=== PATIENT | female | born 1985 | race Caucasian/White ===

== ENCOUNTER → 2017-05-12 | Outpatient (CLI) | payer BC ==
[~2017-05-12] MED LIST: ADDE10CA3 OR; ATOM40CA OR; CELE20TA OR; DEPA500T2 OR; PROZ20CA OR
[2017-05-12 14:15] LABS: BASO % 0.7 % (0.0-1.0); EOS # 0.1 K/mm3 (0.0-0.50); EOS % 2.4 % (0.0-3.0); LARGE UNSTAINED CELL # 0.1 K/mm3 (0.0-0.4); LARGE UNSTAINED CELL % 1.6 % (0.0-4.0); LYMPH # 1.9 K/mm3 (1.5-4.5); LYMPH % 36.5 % (24.0-44.0); MEAN CORPUSCULAR HEMOGLOBIN 29.7 pg (27.0-33.0); MEAN CORPUSCULAR HGB CONC 31.7 g/dl (32.0-36.5); MEAN CORPUSCULAR VOLUME 93.8 fl (80.0-96.0); MONO # 0.3 K/mm3 (0.0-0.8); MONO % 6.6 % (0.0-5.0); NEUTROPHILS # 2.6 K/mm3 (1.8-7.7); NEUTROPHILS % 52.2 % (36.0-66.0); PLATELET COUNT, AUTOMATED 214 k/mm3 (150-450); RED CELL DISTRIBUTION WIDTH 13.3 % (11.5-14.5)
[2017-05-12 14:34] LABS: ALBUMIN 3.3 GM/DL (3.2-5.2); ALBUMIN/GLOBULIN RATIO 0.97 (1.00-1.93); ALKALINE PHOSPHATASE 81 U/L (45-117); ALT/SGPT 20 U/L (12-78); ANION GAP 9 MEQ/L (8-16); AST/SGOT 15 U/L (15-37); BILIRUBIN,TOTAL 0.4 MG/DL (0.2-1.0); BLOOD UREA NITROGEN 17 MG/DL (7-18); CALCIUM LEVEL 7.9 MG/DL (8.5-10.1); CARBON DIOXIDE LEVEL 24 MEQ/L (21-32); CHLORIDE LEVEL 109 MEQ/L (98-107); CHOLESTEROL LEVEL 162 MG/DL (<200); FREE T4 1.02 NG/DL (0.76-1.46); GLOMERULAR FILTRATION RATE > 60.0 (>60); GLUCOSE, FASTING 84 MG/DL (70-105); POTASSIUM SERUM 4.4 MEQ/L (3.5-5.1); SODIUM LEVEL 142 MEQ/L (136-145); TOTAL PROTEIN 6.7 GM/DL (6.4-8.2); TRIGLYCERIDES LEVEL 35 MG/DL (<150)
== END ==
LOC: M WUC 11:38
PROVIDERS: ATTEND Nurse Practitioner Family
DX: R63.5 Abnormal weight gain (principal)

== ENCOUNTER → 2017-05-18 | Outpatient (REF) | payer BC | LOC: M SFHCPLAZ 17:04 | PROVIDERS: ATTEND Nurse Practitioner Family | DX: R82.90 Unspecified abnormal findings in urine (principal) ==

== ENCOUNTER → 2017-09-20 | Outpatient (CLI) | payer BC ==
[2017-09-20 14:30] LABS: ESTIMATED AVERAGE GLUCOSE 85 MG/DL (60-110); HEMOGLOBIN A1c 4.6 %
== END ==
LOC: M SMT 09:21
DX: E66.09 Other obesity due to excess calories (principal)
CPT/HCPCS: 83036

== ENCOUNTER → 2017-11-02 | Outpatient (CLI) | payer BC ==
[2017-11-02 15:47] LABS: HCG, SERUM QUANTITATIVE 3854 MIU/ML
== END ==
LOC: M WUC 12:54
DX: Z33.1 Pregnant state, incidental (principal)
CPT/HCPCS: 84702

== ENCOUNTER → 2017-11-16 | Outpatient (CLI) | payer BC ==
[2017-11-16 12:57] LABS: BASO % 0.5 % (0.0-1.0); EOS # 0.1 10^3/uL (0.0-0.50); EOS % 2.2 % (0.0-3.0); HEMATOCRIT 42.4 % (36.0-47.0); HEMOGLOBIN 13.9 g/dl (12.0-16.0); IMMATURE GRANULOCYTE % 0.3 % (0-3.0); LYMPH # 1.7 10^3/uL (1.5-4.5); MEAN CORPUSCULAR HEMOGLOBIN 30.6 pg (27.0-33.0); MEAN CORPUSCULAR HGB CONC 32.8 g/dl (32.0-36.5); MEAN CORPUSCULAR VOLUME 93.4 fl (80.0-96.0); MONO # 0.6 10^3/uL (0.0-0.8); MONO % 8.6 % (0.0-5.0); NEUTROPHILS # 3.9 10^3/uL (1.8-7.7); NEUTROPHILS % 61.4 % (36.0-66.0); PLATELET COUNT, AUTOMATED 265 10^3/uL (150-450); RED BLOOD COUNT 4.54 10^6/uL (4.00-5.40); RED CELL DISTRIBUTION WIDTH 13.6 % (11.5-14.5); WHITE BLOOD COUNT 6.4 10^3/uL (4.0-10.0)
[2017-11-16 13:26] LABS: HBsAg Prenatal NEGATIVE (NEGATIVE)
[2017-11-16 13:32] LABS: RUBELLA IgG QUALITATIVE IMMUNE (IMMUNE)
[2017-11-16 13:54] LABS: HEPATITIS C VIRUS ABY INDEX 0.1 INDEX (<0.8)
[2017-11-16 13:55] LABS: HIV 1&2 SCREEN CENTAUR NEGATIVE (NEGATIVE)
[2017-11-16 15:25] LABS: CHLAMYDIA DNA AMPLIFICATION NEGATIVE (NEGATIVE); GC DNA AMPLIFICATION NEGATIVE (NEGATIVE)
== END ==
LOC: M SMT 09:48
DX: Z3A.01 Less than 8 weeks gestation of pregnancy (principal); Z34.01 Encounter for supervision of normal first pregnancy, first trimester

== ENCOUNTER → 2018-02-06 | Outpatient (CLI) | payer BC | LOC: M RAD 09:19 | DX: O09.512 Supervision of elderly primigravida, second trimester (principal) ==

== ENCOUNTER → 2018-03-20 | Outpatient (CLI) | payer BC ==
[2018-03-20 13:25] LABS: HEMATOCRIT 34.3 % (36.0-47.0); HEMOGLOBIN 11.3 g/dl (12.0-15.5); MEAN CORPUSCULAR HEMOGLOBIN 30.4 pg (27.0-33.0); MEAN CORPUSCULAR HGB CONC 32.9 g/dl (32.0-36.5); MEAN CORPUSCULAR VOLUME 92.2 fl (80.0-96.0); PLATELET COUNT, AUTOMATED 204 10^3/uL (150-450); RED BLOOD COUNT 3.72 10^6/uL (4.00-5.40); RED CELL DISTRIBUTION WIDTH 14.3 % (11.5-14.5); WHITE BLOOD COUNT 9.9 10^3/uL (4.0-10.0)
[2018-03-20 13:41] LABS: GLUCOSE CHALLENGE TEST 1 HOUR 122 MG/DL (LESS THAN 140)
== END ==
LOC: M SMT 10:22
DX: Z36.89 Encounter for other specified antenatal screening (principal); Z3A.00 Weeks of gestation of pregnancy not specified
CPT/HCPCS: 82950

== ENCOUNTER → 2018-05-22 | Outpatient (CLI) | payer BC | LOC: M RAD 06:53 | DX: O26.843 Uterine size-date discrepancy, third trimester (principal); Z3A.33 33 weeks gestation of pregnancy | CPT/HCPCS: 76816 ==

== ENCOUNTER → 2018-06-08 | Outpatient (REF) | payer BC | LOC: M LAB REF 13:46 | DX: O09.513 Supervision of elderly primigravida, third trimester (principal) | CPT/HCPCS: 87081 ==

== ENCOUNTER → 2018-06-19 | Outpatient (CLI) | payer BC | LOC: M RAD 07:02 | DX: O26.843 Uterine size-date discrepancy, third trimester (principal) | CPT/HCPCS: 76816 ==

== ENCOUNTER → 2018-10-24 | Outpatient (CLI) | payer BC ==
[~2018-10-24] MED LIST changes: +DULC100C PO; +IBUP80TA PO; +PERCOCET PO; +PRENTAB9 PO; +RANITADINE PO
[2018-10-24 12:20] LABS: BASO % 0.5 % (0.0-1.0); EOS # 0.1 10^3/uL (0.0-0.50); EOS % 2.2 % (0.0-3.0); HEMATOCRIT 45.9 % (36.0-47.0); HEMOGLOBIN 14.6 g/dl (12.0-15.5); LYMPH # 1.6 10^3/uL (1.5-4.5); LYMPH % 25.7 % (24.0-44.0); MEAN CORPUSCULAR HEMOGLOBIN 27.1 pg (27.0-33.0); MEAN CORPUSCULAR HGB CONC 31.8 g/dl (32.0-36.5); MEAN CORPUSCULAR VOLUME 85.3 fl (80.0-96.0); MONO # 0.5 10^3/uL (0.0-0.8); MONO % 8.2 % (0.0-5.0); NEUTROPHILS % 63.1 % (36.0-66.0); PLATELET COUNT, AUTOMATED 288 10^3/uL (150-450); RED BLOOD COUNT 5.38 10^6/uL (4.00-5.40); WHITE BLOOD COUNT 6.4 10^3/uL (4.0-10.0)
[2018-10-24 12:41] LABS: HEMOGLOBIN A1c 5.5 %
[2018-10-24 13:29] LABS: ALBUMIN 3.7 GM/DL (3.2-5.2); ALT/SGPT 22 U/L (12-78); BILIRUBIN,TOTAL 0.4 MG/DL (0.2-1.0); BLOOD UREA NITROGEN 16 MG/DL (7-18); CALCIUM LEVEL 8.8 MG/DL (8.5-10.1); CARBON DIOXIDE LEVEL 25 MEQ/L (21-32); CHLORIDE LEVEL 104 MEQ/L (98-107); CREATININE FOR GFR 0.66 MG/DL (0.55-1.30); FERRITIN 16 NG/ML (8-252); FREE T4 1.13 NG/DL (0.76-1.46); GLOMERULAR FILTRATION RATE > 60.0 (>60); GLUCOSE, FASTING 74 MG/DL (70-100); IRON (FE) 66 UG/DL (50-170); PERCENT SATURATION 19.1 % (13.2-45.0); POTASSIUM SERUM 4.5 MEQ/L (3.5-5.1); SODIUM LEVEL 141 MEQ/L (136-145); TOTAL 25(OH) VITAMIN D 31.5 NG/ML (30.0-100.0); TOTAL IRON BINDING CAPACITY 345 UG/DL (250-450); TOTAL PROTEIN 7.3 GM/DL (6.4-8.2)
== END ==
LOC: M WUC 08:07
PROVIDERS: ATTEND Physician Assistant
DX: Z13.29 Encounter for screening for other suspected endocrine disorder (principal)

== ENCOUNTER → 2020-03-05 | Outpatient (CLI) | payer BC | LOC: M PLALAB 08:52 | PROVIDERS: ATTEND Advanced Practice Midwife | DX: Z34.81 Encounter for supervision of other normal pregnancy, first trimester (principal) ==

== ENCOUNTER → 2020-03-06 | Outpatient (CLI) | payer BC ==
[2020-03-06 10:49] LABS: BASO % 0.2 % (0.0-1.0); EOS # 0.1 10^3/uL (0.0-0.5); EOS % 1.4 % (0.0-3.0); HEMATOCRIT 40.8 % (36.0-47.0); HEMOGLOBIN 13.4 g/dl (12.0-15.5); LYMPH # 1.6 10^3/uL (1.5-5.0); LYMPH % 18.8 % (24.0-44.0); MEAN CORPUSCULAR HEMOGLOBIN 30.5 pg (27.0-33.0); MEAN CORPUSCULAR HGB CONC 32.8 g/dl (32.0-36.5); MEAN CORPUSCULAR VOLUME 92.7 fl (80.0-96.0); MONO # 0.5 10^3/uL (0.0-0.8); MONO % 6.1 % (0.0-5.0); NEUTROPHILS # 6.3 10^3/uL (1.5-8.5); NEUTROPHILS % 72.9 % (36.0-66.0); PLATELET COUNT, AUTOMATED 236 10^3/uL (150-450); WHITE BLOOD COUNT 8.6 10^3/uL (4.0-10.0)
[2020-03-06 11:12] LABS: GLUCOSE CHALLENGE TEST 1 HOUR 91 MG/DL (LESS THAN 140)
[2020-03-06 11:23] LABS: CHLAMYDIA DNA AMPLIFICATION NEGATIVE (NEGATIVE); GC DNA AMPLIFICATION NEGATIVE (NEGATIVE)
[2020-03-07 09:23] LABS: HEPATITIS C VIRUS ABY INDEX 0.1 INDEX (<0.8)
[2020-03-07 09:24] LABS: HIV 1&2 SCREEN CENTAUR NEGATIVE (NEGATIVE)
== END ==
LOC: M LAB 08:17
PROVIDERS: ATTEND Advanced Practice Midwife
DX: O09.521 Supervision of elderly multigravida, first trimester (principal)

== ENCOUNTER → 2020-05-19 | Outpatient (CLI) | payer BC ==
--- NOTE | 2020-06-04 09:36 | REP ---
COMPLETE OBSTETRIC ULTRASOUND CLINICAL: Anatomical assessment. TECHNIQUE: Transabdominal obstetrical ultrasound with color Doppler evaluation. FINDINGS: Ultrasound examination demonstrates single live intrauterine in cephalic presentation. motion was identified by the technologist. Placenta is noted anteriorly and grade 0 without evidence for placenta previa or abruption. Amniotic fluid volume is normal. Cervix measures 5 cm in length. No evidence for nuchal cord. Gestational age by last menstrual period (LMP) 22 weeks 3 days with estimated date of delivery 09/19/2020. Gestational age by current measurements 22 weeks 5 days with estimated date of delivery 09/17/2020. heart rate 127 beats per minute. Estimated weight 524 grams (51st percentile). Anatomical assessment demonstrates normal cranium, cerebellum, posterior fossa, choroid plexus, facial features, lungs, four chamber heart/ventricular outflow tracts, diaphragm, stomach, cord insertion/three-vessel cord, kidneys/bladder, spine, and extremities. IMPRESSION: Single live intrauterine in cephalic presentation demonstrating appropriate interval growth. Anatomical assessment is complete and normal. No gross abnormalities are identified. MTDD
== END ==
LOC: M RAD 07:48
PROVIDERS: ATTEND Obstetrics & Gynecology
DX: Z34.82 Encounter for supervision of other normal pregnancy, second trimester (principal)

== ENCOUNTER → 2020-06-18 | Outpatient (CLI) | payer BC ==
[2020-06-18 10:45] LABS: HEMATOCRIT 36.9 % (36.0-47.0); MEAN CORPUSCULAR HEMOGLOBIN 30.3 pg (27.0-33.0); MEAN CORPUSCULAR HGB CONC 32.5 g/dl (32.0-36.5); MEAN CORPUSCULAR VOLUME 93.2 fl (80.0-96.0); PLATELET COUNT, AUTOMATED 195 10^3/uL (150-450); RED BLOOD COUNT 3.96 10^6/uL (4.00-5.40)
== END ==
LOC: M LAB 08:28
PROVIDERS: ATTEND Obstetrics & Gynecology
DX: Z34.82 Encounter for supervision of other normal pregnancy, second trimester (principal); Z3A.00 Weeks of gestation of pregnancy not specified

== ENCOUNTER → 2020-06-23 | Outpatient (CLI) | payer BC | LOC: M LAB 08:26 | PROVIDERS: ATTEND Advanced Practice Midwife | DX: Z34.92 Encounter for supervision of normal pregnancy, unspecified, second trimester (principal); Z3A.00 Weeks of gestation of pregnancy not specified ==

== ENCOUNTER → 2020-06-23 | Outpatient (CLI) | payer BC ==
[2020-06-23 09:45] LABS: BASO % 0.4 % (0.0-1.0); EOS # 0.2 10^3/uL (0.0-0.5); EOS % 1.9 % (0.0-3.0); HEMATOCRIT 37.5 % (36.0-47.0); HEMOGLOBIN 12.1 g/dl (12.0-15.5); LYMPH # 1.8 10^3/uL (1.5-5.0); LYMPH % 20.4 % (24.0-44.0); MEAN CORPUSCULAR HGB CONC 32.3 g/dl (32.0-36.5); MEAN CORPUSCULAR VOLUME 92.8 fl (80.0-96.0); MONO # 0.7 10^3/uL (0.0-0.8); MONO % 7.9 % (0.0-5.0); NEUTROPHILS # 5.8 10^3/uL (1.5-8.5); NEUTROPHILS % 67.8 % (36.0-66.0); PLATELET COUNT, AUTOMATED 212 10^3/uL (150-450); RED BLOOD COUNT 4.04 10^6/uL (4.00-5.40); WHITE BLOOD COUNT 8.6 10^3/uL (4.0-10.0)
[2020-06-23 10:17] LABS: BLOOD UREA NITROGEN 11 MG/DL (7-18); CALCIUM LEVEL 8.4 MG/DL (8.5-10.1); CARBON DIOXIDE LEVEL 26 MEQ/L (21-32); CHLORIDE LEVEL 107 MEQ/L (98-107); CREATININE FOR GFR 0.54 MG/DL (0.55-1.30); GLOMERULAR FILTRATION RATE > 60.0 (>60); GLUCOSE, FASTING 69 MG/DL (70-100); POTASSIUM SERUM 4.2 MEQ/L (3.5-5.1); SODIUM LEVEL 140 MEQ/L (136-145)
[2020-06-23 11:18] LABS: TOTAL 25(OH) VITAMIN D 36.3 NG/ML (30.0-100.0)
== END ==
LOC: M LAB 07:59
PROVIDERS: ATTEND Physician Assistant
DX: R53.83 Other fatigue (principal)

== ENCOUNTER → 2020-08-19 | Outpatient (REF) | payer BC | LOC: M SFHCWAGY 09:48 | PROVIDERS: ATTEND Advanced Practice Midwife | DX: Z3A.35 35 weeks gestation of pregnancy (principal) ==

== ENCOUNTER 2020-09-12 07:30 | Inpatient (IN) | payer BC ==
[~2020-09-12] VITALS: Ht 152.4 cm; Wt 121.8 kg
[~2020-09-12 07:30] MED LIST changes: +FAMO40TA3 PO
[2020-09-17] VITALS (8 sets, daily range): BP systolic 111–135; BP diastolic 57–81
--- OUTSIDE RECORDS SUMMARY | 2020-09-17 05:29 | CCD ---
Author Author [facility] Organization [facility] Address Unknown Phone Unavailable Care Team Providers Care Commercial Lines Account Executive Name Role Phone Yaz Lagunas Unavailable PROBLEMS Type Condition ICD9-CM Code [id number] Code Onset Dates Condition S tatus SNOMED Code Notes Problem ADHD (attention deficit hyperactivity disorder) F9 0.9 Active 036365673 Problem Binge eating disorder F50.8 Active 197471787 Problem Obesity, unspecified obesity severity, unspecified obe sity type E66.9 Active 809025557 Problem Obesity complicating in third trimester O99.21 3 Active Problem Depression F32.9 Active 21484039 Problem Obesity E66.9 Active 669456811 Problem Insomnia G47.00 Active 861279789 Problem Tension-type headache, not intractable, unspecified chronicity pattern G44.209 Active 271061770 Problem Moderately severe depression F32.2 Active 450 290741 Problem Heartburn R12 Active 59276137 Problem Supervision of other normal Z34.80 Ac tive 586886691 ALLERGIES No Known Allergies ENCOUNTERS from 1983 to 2020-09-03 Encounter Location Date Provider Diagnosis [facility] [place] [address] Aug, Yaz Lagunas Multigravida of adva nced maternal age in third trimester O09.523 ; Previous delivery affecting O34.219 and 37 weeks gestation of Z3A.37 IMMUNIZATIONS Vaccine Route Administration Date Status IPV 0.5mL (Polio) Unknown 1983 Administered IPV 0.5mL (Polio) Unknown 1983 Administered IPV 0.5mL (Polio) Unknown 1983 Administered IPV 0.5mL (Polio) Unknown 1983 Administered TDAP 0.5mL (Boostrix) IM Intramuscular Jul 23, 2020 Administe red MMR 0.5mL Unknown Apr 06, 1984 Administered MMR 0.5mL Unknown March 06, 1996 Administered TD Adult 0.5mL (Tetanus) Unknown Apr 06, 1996 Adminis tered DTP Unknown 1983 Administered IPV 0.5mL (Polio) Unknown Sep 28, 1987 Administered Hepatitis B Ped & Adol 0.5mL (Engerix-B) Unknown Apr 11, 2001 Administered Hepatitis B Ped & Adol 0.5mL (Engerix-B) Unknown May Administered Influenza (6mo & up) Fluzone IM Intramuscular Jul 23, 2020 Ad ministered Influenza (6mo & up) Fluzone IM Intramuscular Jun 16, 2017 Ad ministered Influenza (6mo & up) Fluzone Unknown May 18, 2017 Ot ers Influenza (6mo & up) Fluzone IM Intramuscular Jun 17, 2016 Ad ministered HIB 0.5mL Unknown Jul 12, 1985 Administered DTP Unknown Apr 28, 1988 Administered DTP Unknown 1983 Administered DTP Unknown 1983 Administered SOCIAL HISTORY Tobacco Use: Social History Observation Description Date Details (start date - stop date) Never Smoker Sex Assigned At : Social History Observation Description Sex Assigned At Unknown Language: Question Answer Notes Languages spoken: Urdu Episcopal: Question Answer Notes Episcopal 21 Confucianism Tobacco Use: Question Answer Notes Are you a: never smoker REASON FOR REFERRAL No Information VITAL SIGNS Weight 263.2 lbs Aug, Weight-kg 119.39 kg Aug, Height 60 in Aug, BMI 51.403 kg/m2 Aug, Blood pressure systolic 120 mm Hg Aug, Blood pressure diastolic 82 mm Hg Aug, MEDICATIONS Medication SIG (Take, Route, Frequency, Duration) Notes Start Da te End Date Status Omeprazole 20 MG 1 capsule 30 minutes before morning meal Orally Once a day for 90 Active Amoxicillin 875 MG 1 tablet Orally every 12 hrs for 10 day(s) Jul, Not-Taking Topamax 100 MG 1 tablet Orally Twice a day Not-Taking Vitamin 27-0.8 MG 1 tablet Orally Once a day Active Pepcid 40 MG 1 tablet at bedtime Orally Once a day for 30 day(s) Feb, Active Vyvanse 70 MG 1 capsule in the morning Orally Once a day for 3 0 day(s) Jul, Not-Taking Jobst Active 15-20mmHg Medium - as directed _varicose veins Daily for 30 day(s) Not-Taking Eszopiclone 1 mg 1 tablet immediately before bedtime Orally Once a day for 30 day(s) Jun, Not-Taking Clotrimazole 1 % 1 application to affected ar ea Externally Twice a day for 30 day(s) Not-Taking Fluoxetine 10 MG 1 capsule in the morning Orally Once a day for 30 da y(s) Not-Taking PROCEDURES No Information RESULTS No Results REASON FOR VISIT 1 WK PN MEDICAL (GENERAL) HISTORY Type Description Date Medical History Depression Medical History ADHD since childhood Medical History Eczema (carroll. leg) Medical History Dry eye (Followed by Addisgrace del rosario) Surgical History tonsillectomy as child Surgical History [place] tooth extraction Surgical History C section Hospitalization History related to surgery Hospitalization History Depression 2011 Goals Section No Information Health Concerns No Information MEDICAL EQUIPMENT No Information MENTAL STATUS No Information FUNCTIONAL STATUS No Information ASSESSMENTS Encounter Date Diagnosis Assessment Notes Treatment Notes Treatm ent Clinical Notes Aug, Multigravida of advanced mat ernal age in third trimester (ICD-10 - O09.523) Aug, Previous delivery affecting pre gnancy (ICD-10 - O34.219) Aug, 37 weeks gestation of (ICD-10 - Z3A.37 ) PLAN OF TREATMENT Medication Medication Name Sig Start Date Stop Date Omeprazole 20 MG 1 capsule 30 minutes before morning meal Orally Once a day for 90 Next Appt Details 1 Week Reason: Provider Name:Rafia Pierre, 2020-09 10:00:00 AM, [address] [place] [address], [phone], Provider Name:Emilia Shoemaker, 2020-09-12 0 7:30:00 AM, [address] [place] [address], [phone], Provider Name:Vinicius Baum, 07:30:00 AM, [address] [place], [address], Provider Name:Vinicius Baum, 01:20:00 PM, [address] [place], [address], Provider Name:Vinicius Baum, 10:20:00 AM, [address] [place], [address], Insurance Providers Payer Name Payer Address Payer Phone Insured Name Patient Relati onship to Insured Coverage Start Date Coverage End Date BCBS [place] [facility] PPO [phone] [place] [address] LORAINE CHIRINOS
--- OUTSIDE RECORDS SUMMARY | 2020-09-17 05:29 | CCD ---
Author Author [facility] Organization [facility] Address Unknown Phone Unavailable Care Team Providers Care Fire Lieutenant Name Role Phone Rafia Pierre Unavailable PROBLEMS Type Condition ICD9-CM Code [id number]-TE Code Onset Dates Condition S tatus SNOMED Code Notes Problem ADHD (attention deficit hyperactivity disorder) F9 0.9 Active 288948942 Problem Binge eating disorder F50.8 Active 600643033 Problem Obesity, unspecified obesity severity, unspecified obe sity type E66.9 Active 184391386 Problem Obesity complicating in third trimester O99.21 3 Active Problem Depression F32.9 Active 94946542 Problem Obesity E66.9 Active 681461274 Problem Insomnia G47.00 Active 125534947 Problem Tension-type headache, not intractable, unspecified chronicity pattern G44.209 Active 067856826 Problem Moderately severe depression F32.2 Active 450 033465 Problem Heartburn R12 Active 39434701 Problem Supervision of other normal Z34.80 Ac tive 465527390 ALLERGIES No Known Allergies ENCOUNTERS from 1983 to 2020-08-05 Encounter Location Date Provider Diagnosis [facility] [address] [place] [address] Jun, Rafia Ignacio Supervision of elder ly multigravida, second trimester O09.522 ; Obesity complicating , second trimester O99.212 ; Maternal care for low transverse scar from previous delivery O34.211 and 27 weeks gestation of Z3A.27 IMMUNIZATIONS Vaccine Route Administration Date Status Influenza (6mo & up) Fluzone Unknown May 18, 2017 Oth ers Influenza (6mo & up) Fluzone IM Intramuscular Jun 16, 2017 Ad ministered Influenza (6mo & up) Fluzone IM Intramuscular Jul 23, 2020 Ad ministered IPV 0.5mL (Polio) Unknown 1983 Administered TDAP 0.5mL (Boostrix) IM Intramuscular Jul 23, 2020 Administe red IPV 0.5mL (Polio) Unknown 1983 Administered IPV 0.5mL (Polio) Unknown 1983 Administered Influenza (6mo & up) Fluzone IM Intramuscular Jun 17, 2016 Ad ministered DTP Unknown 1983 Administered IPV 0.5mL (Polio) Unknown Sep 28, 1987 Administered Hepatitis B Ped & Adol 0.5mL (Engerix-B) Unknown Apr 11, 2001 Administered Hepatitis B Ped & Adol 0.5mL (Engerix-B) Unknown May Administered IPV 0.5mL (Polio) Unknown 1983 Administered TD Adult 0.5mL (Tetanus) Unknown Apr 06, 1996 Adminis tered MMR 0.5mL Unknown March 06, 1996 Administered MMR 0.5mL Unknown Apr 06, 1984 Administered HIB 0.5mL Unknown Jul 12, 1985 Administered DTP Unknown Apr 28, 1988 Administered DTP Unknown 1983 Administered DTP Unknown 1983 Administered SOCIAL HISTORY Tobacco Use: Social History Observation Description Date Details (start date - stop date) Never Smoker Sex Assigned At : Social History Observation Description Sex Assigned At Unknown Language: Question Answer Notes Languages spoken: Swedish Scientology: Question Answer Notes Scientology 21 Jehovah'S Witness Tobacco Use: Question Answer Notes Are you a: never smoker REASON FOR REFERRAL No Information VITAL SIGNS Weight 253.6 lbs Jun, Weight-kg 115.03 kg Jun, Height 60 in Jun, BMI 49.528 kg/m2 Jun, Blood pressure systolic 100 mm Hg Jun, Blood pressure diastolic 80 mm Hg Jun, MEDICATIONS Medication SIG (Take, Route, Frequency, Duration) Notes Start Da te End Date Status Pepcid 40 MG 1 tablet at bedtime Orally Once a day for 30 day(s) Feb, Active Fluoxetine 10 MG 1 capsule in the morning Orally Once a day for 30 da y(s) Not-Taking Topamax 100 MG 1 tablet Orally Twice a day Not-Taking Eszopiclone 1 mg 1 tablet immediately before bedtime Orally Once a day for 30 day(s) Jun, Not-Taking Vyvanse 70 MG 1 capsule in the morning Orally Once a day for 3 0 day(s) Jul, Not-Taking Clotrimazole 1 % 1 application to affected ar ea Externally Twice a day for 30 day(s) Not-Taking Vitamin 27-0.8 MG 1 tablet Orally Once a day Active Jobst Active 15-20mmHg Medium - as directed _varicose veins Daily for 30 day(s) Not-Taking Amoxicillin 875 MG 1 tablet Orally every 12 hrs for 10 day(s) Jul, Not-Taking PROCEDURES No Information RESULTS No Results REASON FOR VISIT 3 wk pn MEDICAL (GENERAL) HISTORY Type Description Date Medical History Depression Medical History ADHD since childhood Medical History Eczema (carroll. leg) Medical History Dry eye (Followed by Gamaliel Joshua del rosario) Surgical History tonsillectomy as child Surgical History [place] tooth extraction Surgical History C section Hospitalization History related to surgery Hospitalization History Depression 2011 Goals Section No Information Health Concerns No Information MEDICAL EQUIPMENT No Information MENTAL STATUS No Information FUNCTIONAL STATUS No Information ASSESSMENTS Encounter Date Diagnosis Assessment Notes Treatment Notes Treatm ent Clinical Notes Jun, Supervision of elderly multi , second trimester (ICD-10 - O09.522) Jun, Obesity complicating pregnan cy, second trimester (ICD-10 - O99.212) Jun, Maternal care for low transv erse scar from previous delivery (ICD-10 - O34.211) Jun, 27 weeks gestation of (ICD-10 - Z3A.27 ) PLAN OF TREATMENT Medication Medication Name Sig Start Date Stop Date Pepcid 40 MG 1 tablet at bedtime Orally Once a day for 30 day (s) Feb, Next Appt Details 4 Weeks Reason:PN Provider Name:Yulia Ceballos, 2020-08-19 03:40:00 PM, [address] [place], [address], Provider Name:Vinicius Baum, 01:00:00 PM, [address] [place], [address], Provider Name:Emilia Shoemaker, 2020-09-12 0 7:30:00 AM, [address] [place] [address], [phone], Provider Name:Vinicius Baum, 07:30:00 AM, [address] [place] [address], [phone], Provider Name:Vinicius Baum, 01:20:00 PM, [address] [place] [address], [phone], Provider Name:Vinicius Baum, 10:20:00 AM, [address] [place] [address], [phone], Follow Up:4 WeeksPN Insurance Providers Payer Name Payer Address Payer Phone Insured Name Patient Relati onship to Insured Coverage Start Date Coverage End Date BCBS [place] PPO [phone] [facility] [place] [address] LORAINE CHIRINOS
--- OUTSIDE RECORDS SUMMARY | 2020-09-17 05:29 | CCD ---
Author Author [facility] Organization [facility] Address Unknown Phone Unavailable Care Team Providers Care Hvac Project Manager Name Role Phone Rafia Pierre Unavailable PROBLEMS Type Condition ICD9-CM Code [id number] Code Onset Dates Condition S tatus SNOMED Code Notes Problem ADHD (attention deficit hyperactivity disorder) F9 0.9 Active 030504587 Problem Binge eating disorder F50.8 Active 909406823 Problem Obesity, unspecified obesity severity, unspecified obe sity type E66.9 Active 681406636 Problem Obesity complicating in third trimester O99.21 3 Active Problem Depression F32.9 Active 89846465 Problem Obesity E66.9 Active 601250638 Problem Insomnia G47.00 Active 295539349 Problem Tension-type headache, not intractable, unspecified chronicity pattern G44.209 Active 066363443 Problem Moderately severe depression F32.2 Active 450 511290 Problem Heartburn R12 Active 48516609 Problem Supervision of other normal Z34.80 Ac tive 035091274 ALLERGIES No Known Allergies ENCOUNTERS from 1983 to 2020-09-13 Encounter Location Date Provider Diagnosis [facility] Breast Care [address] [place] [address] Sep, Rafia Pierre 38 weeks gestation o f Z3A.38 ; Maternal care for low transverse scar from previous delivery O34.211 ; Multigravida of advanced maternal age in third trimester O09.523 and Obesity c omplicating in third trimester O99.213 IMMUNIZATIONS Vaccine Route Administration Date Status IPV [...] Unknown Language: Question Answer Notes Languages spoken: Chinese Mandaeism: Question Answer Notes Mandaeism 21 Yarsanism Tobacco Use: Question Answer Notes Are you a: never smoker REASON FOR REFERRAL No Information VITAL SIGNS Weight 263 lbs Sep, Height 60 in Sep, BMI 51.364 kg/m2 Sep, Blood pressure systolic 130 mm Hg Sep, Blood pressure diastolic 82 mm Hg Sep, MEDICATIONS Medication SIG (Take, Route, Frequency, Duration) Notes Start Da te End Date Status Omeprazole 20 MG 1 capsule 30 minutes before morning meal Orally Once a day for 90 Active Fluoxetine 10 MG 1 capsule in the morning Orally Once a day for 30 da y(s) Not-Taking Vyvanse 70 MG 1 capsule in the morning Orally Once a day for 3 0 day(s) Jul, Not-Taking Eszopiclone 1 mg 1 tablet immediately before bedtime Orally Once a day for 30 day(s) Jun, Not-Taking Clotrimazole 1 % 1 application to affected ar ea Externally Twice a day for 30 day(s) Not-Taking Topamax 100 MG 1 tablet Orally Twice a day Not-Taking Pepcid 40 MG 1 tablet at bedtime Orally Once a day for 30 day(s) Feb, Active Vitamin 27-0.8 MG 1 tablet Orally Once [...] leg) Medical History Dry eye (Followed by [facility] del rosario) Surgical History tonsillectomy as child Surgical History [place] tooth extraction Surgical History C section Hospitalization History related to surgery Hospitalization History Depression 2012 Goals Section No Information Health Concerns No Information MEDICAL EQUIPMENT No Information MENTAL STATUS No Information FUNCTIONAL STATUS No Information ASSESSMENTS Encounter Date Diagnosis Assessment Notes Treatment Notes Treatm ent Clinical Notes Sep, 38 weeks gestation of (ICD-10 - Z3A.38 ) Sep, Maternal care for low transv erse scar from previous delivery (ICD-10 - O34.211) Sep, Multigravida of advanced mat ernal age in third trimester (ICD-10 - O09.523) Sep, Obesity complicating pregnan cy in third trimester (ICD-10 - O99.213) PLAN OF TREATMENT Next Appt Details 1 Week Reason:PN Provider Name:Emilia Shoemaker, 2020-09-17 0 7:30:00 AM, [address] [place] [address], [phone], Provider Name:Vinicius Baum, 07:30:00 AM, [address] [place] [address], [phone], Provider Name:Vinicius Baum, 01:20:00 PM, [address] [place], [address], Provider Name:Vinicius Baum, 11:40:00 AM, [address] [place], [address], Follow Up:1 WeekPN Insurance Providers Payer Name Payer Address Payer Phone Insured Name Patient Relati onship to Insured Coverage Start Date Coverage End Date BCBS OF [facility] [phone] [facility] [id number] LORAINE CHIRINOS
--- OUTSIDE RECORDS SUMMARY | 2020-09-17 05:29 | CCD ---
Author Author [facility] Organization [facility] Address Unknown Phone Unavailable Care Team Providers Care Safety Grooving Machine Operator Name Role Phone Vinicius Baum Unavailable PROBLEMS Type Condition ICD9-CM Code UBL92-FF Code Onset Dates Condition S tatus SNOMED Code Notes Problem ADHD (attention deficit hyperactivity disorder) F9 0.9 Active 193975688 Problem Binge eating disorder F50.8 Active 452499331 Problem Obesity, unspecified obesity severity, unspecified obe sity type E66.9 Active 170950279 Problem Obesity complicating in third trimester O99.21 3 Active Problem Depression F32.9 Active 20561459 Problem Obesity E66.9 Active 662788410 Problem Insomnia G47.00 Active 145611835 Problem Tension-type headache, not intractable, unspecified chronicity pattern G44.209 Active 805940575 Problem Moderately severe depression F32.2 Active 450 266058 Problem Heartburn R12 Active 38941375 Problem Supervision of other normal Z34.80 Ac tive 089558575 ALLERGIES No Known Allergies ENCOUNTERS from 1983 to 2020-08-12 Encounter Location Date Provider Diagnosis [facility] Breast Care [address] [place] [address] Aug, Vinicius Baum Obesity complicating in third trimester O99.213 ; Maternal care for low transverse scar from previous delivery O34.211 ; 33 weeks gestation of Z3A.33 and Heartburn R12 IMMUNIZATIONS Vaccine Route Administration Date Status IPV [...] Unknown Language: Question Answer Notes Languages spoken: Portuguese Latter-Day: Question Answer Notes Latter-Day 21 Pentecostal Tobacco Use: Question Answer Notes Are you a: never smoker REASON FOR REFERRAL No Information VITAL SIGNS Weight 255 lbs Aug, Height 60 in Aug, BMI 49.801 kg/m2 Aug, Blood pressure systolic 110 mm Hg Aug, Blood pressure diastolic 62 mm Hg Aug, MEDICATIONS Medication SIG (Take, [...] Information RESULTS No Results REASON FOR VISIT 2 WK PN MEDICAL (GENERAL) HISTORY Type Description Date Medical History Depression Medical History ADHD since childhood Medical History Eczema (carroll. leg) Medical History Dry eye (Followed by Emmanuel del rosario) Surgical History tonsillectomy as child Surgical History [place] tooth extraction Surgical History C section Hospitalization History related to surgery Hospitalization History Depression 2011 Goals Section No Information Health Concerns No Information MEDICAL EQUIPMENT No Information MENTAL STATUS No Information FUNCTIONAL STATUS No Information ASSESSMENTS Encounter Date Diagnosis Assessment Notes Treatment Notes Treatm ent Clinical Notes Aug, Obesity complicating pregnan cy in third trimester (ICD-10 - O99.213) Aug, Maternal care for low transv erse scar from previous delivery (ICD-10 - O34.211) Aug, 33 weeks gestation of (ICD-10 - Z3A.33 ) Aug, Heartburn (ICD-10 - R12) PLAN OF TREATMENT Medication Medication Name Sig Start Date Stop Date Pepcid 40 MG 1 tablet at bedtime Orally Once a day for 30 day (s) Feb, Next Appt Details 2 Weeks Reason: Provider Name:Yulia Ceballos, 2020-08-19 03:40:00 PM, [address] [place] [address], [phone], Provider Name:Vinicius Baum, 01:00:00 PM, [address] [place] [address], [phone], Provider Name:Emilia Shoemaker, 2020-09-12 0 7:30:00 AM, [address] [place] [address], [phone], Provider Name:Vinicius Baum, 07:30:00 AM, [address] [place] [address], [phone], Provider Name:Vinicius Baum, 01:20:00 PM, [address] [place] [address], [phone], Provider Name:Vinicius Baum, 10:20:00 AM, [address] [place] [address], [phone], Insurance Providers Payer Name Payer Address Payer Phone Insured Name Patient Relati onship to Insured Coverage Start Date Coverage End Date BCBS [place] PPO [phone] [facility] [place] [address] LORAINE CHIRINOS
--- OUTSIDE RECORDS SUMMARY | 2020-09-17 05:29 | CCD | Continuity of Care Document ---
Author Author [facility] Organization Unknown Address [address] [place] [address] [place] [address] Phone [phone] Care Team Providers Care Pool Cleaner Name Role Phone Meka Cunha DO AUTM Anthony Co Publi AUTM [phone] Problems Active Problems Provider Date Acute upper respiratory infection Nakul Wilks PJennaAJenna Onset: 11/21/2010 Social History Type Date Description Comments Sex Unknown Tobacco Use Start: Unknown Never Smoked Cigarettes ETOH Use Occasionally consumes alcohol ETOH Use Occasionally consumes alcohol Tobacco Use Start: Unknown End: Unknown Patient is a former smoker quit 2012 Smoking Status Reviewed: 10/15/19 Patient is a former smoker qu it 2013 Allergies, Adverse Reactions, Alerts Description No Known Drug Allergies Medications Active Medications SIG Qnty Indications Ordering Provide r Date Unknown Pepcid Unknown History Medications No Active Medications Unknown - 09/03/2020 Immunizations Description No Information Available Vital Signs Date Vital Result Comment 09/03/2020 7:09pm BP Systolic 108 mmHg BP Diastolic 74 mmHg Heart Rate 97 /min Respiratory Rate 16 /min O2 % BldC Oximetry 95 % Body Temperature 98.7 F Weight 250.00 lb Pain Level 5 10/15/2019 3:37pm BP Systolic 135 mmHg BP Diastolic 96 mmHg Heart Rate 101 /min Respiratory Rate 12 /min O2 % BldC Oximetry 97 % Body Temperature 100.6 F Weight 220.00 lb Height 60 inches 5'0" BMI (Body Mass Index) 43.0 kg/m2 Pain Level 6 Results Description No Information Available Procedures Description No Information Available Medical Devices Description No Information Available Encounters Type Date Location Provider Dx Diagnosis Office Visit 09/03/2020 6:50p Main Office LYLY Pike U07 .1 Covid-19 J06.9 Acute upper respiratory infe ction, unspecified Z20.828 Contact w and exposure to ot h viral communicable diseases Assessments Date Code Description Provider 09/03/2020 U07.1 Covid-19 LYLY French 09/03/2020 J06.9 Acute upper respiratory infectio n, unspecified LYLY Pike 09/03/2020 Z20.828 Contact with and (guzman spected) exposure to other viral communicable diseases LYLY Pike Plan of Treatment No Information Available Functional Status Description No Information Available Mental Status Description No Information Available Referrals Description No Information Available
--- OUTSIDE RECORDS SUMMARY | 2020-09-17 05:29 | CCD ---
Author Author [facility] Organization [facility] Address Unknown Phone Unavailable Care Team Providers Care [facility] Sales Representative Name Role Phone Yulia Ceballos Unavailable PROBLEMS Type Condition ICD9-CM Code [id number] Code Onset Dates Condition S tatus SNOMED Code Notes Problem ADHD (attention deficit hyperactivity disorder) F9 0.9 Active 017083587 Problem Binge eating disorder F50.8 Active 504767127 Problem Obesity, unspecified obesity severity, unspecified obe sity type E66.9 Active 053744961 Problem Obesity complicating in third trimester O99.21 3 Active Problem Depression F32.9 Active 86745508 Problem Obesity E66.9 Active 869542346 Problem Insomnia G47.00 Active 114680898 Problem Tension-type headache, not intractable, unspecified chronicity pattern G44.209 Active 791191506 Problem Moderately severe depression F32.2 Active 450 790228 Problem Heartburn R12 Active 12519598 Problem Supervision of other normal Z34.80 Ac tive 539085345 ALLERGIES No Known Allergies ENCOUNTERS from 1983 to 2020-08-01 Encounter Location Date Provider Diagnosis [facility] [address] [place] [address] Jul, Yulia Yamilaniles Multigravida of a dvanced maternal age in third trimester O09.523 ; Maternal care due to low transverse uterine scar from previous delivery O34.211 ; 31 weeks gestation of Z3A.31 and Encounter for immunization Z23 IMMUNIZATIONS Vaccine Route Administration Date Status IPV [...] Unknown Language: Question Answer Notes Languages spoken: Mexican Synagogue: Question Answer Notes Synagogue 21 Bahai Tobacco Use: Question Answer Notes Are you a: never smoker REASON FOR REFERRAL No Information VITAL SIGNS Weight 258 lbs Jul, Height 60 in Jul, BMI 50.387 kg/m2 Jul, Blood pressure systolic 118 mm Hg Jul, Blood pressure diastolic 72 mm Hg Jul, MEDICATIONS Medication SIG (Take, Route, Frequency, Duration) Notes Start Da te End Date Status Vitamin 27-0.8 MG 1 tablet Orally Once [...] a day for 30 da y(s) Not-Taking Pepcid 40 MG 1 tablet at bedtime Orally Once a day for 30 day(s) Feb, Active Amoxicillin 875 MG 1 tablet Orally every 12 hrs for 10 day(s) Jul, Not-Taking Topamax 100 MG 1 tablet Orally Twice a day Not-Taking PROCEDURES Procedure Date Ordered Result Body Site Immunization: Boostrix 0.5mL IM (TDAP) 2020-07-23 N/A Immunization: Fluzone (6mo & older) 0.5mL IM (Influenza) 2020-07 N/A RESULTS No Results REASON FOR VISIT 4 WK PN MEDICAL (GENERAL) HISTORY Type Description Date Medical History Depression Medical History ADHD since childhood Medical History Eczema (carroll. leg) Medical History Dry eye (Followed by [place] [facility] del [facility]) Surgical History tonsillectomy as child Surgical History [place] tooth extraction Surgical History C section Hospitalization History related to surgery Hospitalization History Depression 2012 Goals Section No Information Health Concerns No Information MEDICAL EQUIPMENT No Information MENTAL STATUS No Information FUNCTIONAL STATUS No Information ASSESSMENTS Encounter Date Diagnosis Assessment Notes Treatment Notes Treatm ent Clinical Notes Jul, Multigravida of advanced mat ernal age in third trimester (ICD-10 - O09.523) Jul, Maternal care due to low tra nsverse uterine scar from previous delivery (ICD-10 - O34.211) Jul, 31 weeks gestation of (ICD-10 - Z3A.31 ) Jul, Encounter for immunization (ICD-10 - Z23) PLAN OF TREATMENT Next Appt Details 2 Weeks Reason:PN Provider Name:Vinicius Baum, 07:45:00 AM, [facility] [place], [address], Provider Name:Vinicius Baum 01:00:00 PM, [address] [place], [address], Provider Name:Emilia Shoemaker, 2020-09-12 0 7:30:00 AM, [address] [place] [address], [address], Provider Name:Vinicius Baum, 07:30:00 AM, [address] [place] [address], [address], Provider Name:Vinicius Baum, 01:20:00 PM, [address] [place] [address], [phone], Provider Name:Vinicius Baum, 10:20:00 AM, [address] [place] [address], [phone], Follow Up:2 WeeksPN Insurance Providers Payer Name Payer Address Payer Phone Insured Name Patient Relati onship to Insured Coverage Start Date Coverage End Date BCBS [place] PPO [phone] [facility] [place] [address] LORAINE CHIRINOS
--- OUTSIDE RECORDS SUMMARY | 2020-09-17 05:29 | CCD ---
Author Author [facility] Organization [facility] Address Unknown Phone Unavailable Care Team Providers Care Consulting Sales Executive Name Role Phone Vinicius Baum Unavailable PROBLEMS Type Condition ICD9-CM Code [id number] Code Onset Dates Condition S tatus SNOMED Code Notes Problem ADHD (attention deficit hyperactivity disorder) F9 0.9 Active 572941777 Problem Binge eating disorder F50.8 Active 748560735 Problem Obesity, unspecified obesity severity, unspecified obe sity type E66.9 Active 080458341 Problem Obesity complicating in third trimester O99.21 3 Active Problem Depression F32.9 Active 10720739 Problem Obesity E66.9 Active 839250314 Problem Insomnia G47.00 Active 311373581 Problem Tension-type headache, not intractable, unspecified chronicity pattern G44.209 Active 483415599 Problem Moderately severe depression F32.2 Active 450 904995 Problem Heartburn R12 Active 65154871 Problem Supervision of other normal Z34.80 Ac tive 246913560 ALLERGIES No Known Allergies ENCOUNTERS from 1983 to 2020-08-27 Encounter Location Date Provider Diagnosis [facility] [address] [place] [address] Aug, Vinicius Baum Obesity complicating in third trimester O99.213 ; Maternal care for low transverse scar from previous delivery O34.211 and 36 weeks gestation of Z3A.36 IMMUNIZATIONS Vaccine Route Administration Date Status IPV 0.5mL (Polio) Unknown 1983 Administered IPV 0.5mL (Polio) Unknown 1983 Administered IPV 0.5mL (Polio) Unknown 1983 Administered IPV 0.5mL (Polio) Unknown 1983 Administered TDAP 0.5mL (Boostrix) IM Intramuscular Jul 23, 2020 Administe red Influenza (6mo & up) Fluzone Unknown May 18, 2017 Oth ers Influenza (6mo & up) Fluzone IM Intramuscular Jun 16, 2017 Ad ministered Influenza (6mo & up) Fluzone IM Intramuscular Jul 23, 2020 Ad ministered DTP Unknown 1983 Administered IPV 0.5mL (Polio) Unknown Sep 28, 1987 Administered Hepatitis B Ped & Adol 0.5mL (Engerix-B) Unknown Apr 11, 2001 Administered Hepatitis B Ped & Adol 0.5mL (Engerix-B) Unknown May Administered Influenza (6mo & up) Fluzone IM Intramuscular Jun 17, 2016 Ad ministered TD Adult 0.5mL (Tetanus) Unknown Apr 06, [...] Unknown Language: Question Answer Notes Languages spoken: Yakut Spiritism: Question Answer Notes Spiritism 21 Jain Tobacco Use: Question Answer Notes Are you a: never smoker REASON FOR REFERRAL No Information VITAL SIGNS Weight 259 lbs Aug, Height 60 in Aug, BMI 50.582 kg/m2 Aug, Blood pressure systolic 104 mm Hg Aug, Blood pressure diastolic 70 mm Hg Aug, MEDICATIONS Medication SIG (Take, Route, Frequency, Duration) Notes Start Da te End Date Status Fluoxetine 10 MG 1 capsule in the morning Orally Once a day for 30 da y(s) Not-Taking Eszopiclone 1 mg 1 tablet immediately [...] Information RESULTS No Results REASON FOR VISIT 1WK PN & PRE OP SURG 09/12/20 MEDICAL (GENERAL) HISTORY Type Description Date Medical History Depression Medical History ADHD since childhood Medical History Eczema (carroll. leg) Medical History Dry [place] ([place] [facility] Surgical History tonsillectomy as child Surgical History [place] tooth extraction Surgical History C section Hospitalization [...] from previous delivery (ICD-10 - O34.211) Aug, 36 weeks gestation of (ICD-10 - Z3A.36 ) PLAN OF TREATMENT Next Appt Details 1 Week Reason:follow-up Provider Name:Yaz Lagunas, 2020-09-02 0 3:20:00 PM, [address] [place] [address], [phone], Provider Name:Rafia Pierre, 2020-09 10:00:00 AM, [address] [place] [address], [phone], Provider Name:Emilia Shoemaker, 2020-09-12 0 7:30:00 AM, [address] [place] [address], [phone], Provider Name:Vinicius Baum, 07:30:00 AM, [address] [place] [address], [phone], Provider Name:Vinicius Baum, 01:20:00 PM, [address] [place], [address], Provider Name:Vinicius Baum, 10:20:00 AM, [facility] [place], [address], Follow Up:1 Weekfollow-up Insurance Providers Payer Name Payer Address Payer Phone Insured Name Patient Relati onship to Insured Coverage Start Date Coverage End Date [facility] [place] [facility] [phone] [facility] [place] [facility] [place] [address] LORAINE CHIRINOS
--- OUTSIDE RECORDS SUMMARY | 2020-09-17 05:29 | CCD ---
Author Author [facility] Organization [facility] Address Unknown Phone Unavailable Care Team Providers Care Web Operations Specialist Name Role Phone Yamilaniles Yulia Unavailable PROBLEMS Type Condition ICD9-CM Code [id number] Code Onset Dates Condition S tatus SNOMED Code Notes Problem ADHD (attention deficit hyperactivity disorder) F9 0.9 Active 763045278 Problem Binge eating disorder F50.8 Active 212052646 Problem Obesity, unspecified obesity severity, unspecified obe sity type E66.9 Active 748316062 Problem Obesity complicating in third trimester O99.21 3 Active Problem Depression F32.9 Active 29622054 Problem Obesity E66.9 Active 206974781 Problem Insomnia G47.00 Active 039047816 Problem Tension-type headache, not intractable, unspecified chronicity pattern G44.209 Active 243627455 Problem Moderately severe depression F32.2 Active 450 570668 Problem Heartburn R12 Active 50861755 Problem Supervision of other normal Z34.80 Ac tive 780309878 ALLERGIES No Known Allergies ENCOUNTERS from 1983 to 2020-08-21 Encounter Location Date Provider Diagnosis [facility] [address] [place] [address] 15 Aug, 2020 Yulia Ceballos 35 weeks gestatio n of Z3A.35 ; Maternal care due to low transverse uterine scar from previous delivery O34.211 and Supervision of elderly multigravida, third trimester O09.523 IMMUNIZATIONS Vaccine Route Administration Date Status IPV 0.5mL (Polio) Unknown 1983 Administered IPV 0.5mL (Polio) Unknown 1983 Administered IPV 0.5mL (Polio) Unknown 1983 Administered IPV 0.5mL (Polio) Unknown Sep 28, 1987 Administered Influenza (6mo & up) Fluzone IM Intramuscular Jul 23, 2020 Ad ministered MMR 0.5mL Unknown March 06, 1996 Administered TD Adult 0.5mL (Tetanus) Unknown Apr 06, 1996 Adminis tered IPV 0.5mL (Polio) Unknown 1983 Administered DTP Unknown 1983 Administered Hepatitis B Ped & Adol 0.5mL (Engerix-B) Unknown Apr 11, 2001 Administered Hepatitis B Ped & Adol 0.5mL (Engerix-B) Unknown May Administered TDAP 0.5mL (Boostrix) IM Intramuscular Jul 23, 2020 Administe red MMR 0.5mL Unknown Apr 06, 1984 Administered Influenza (6mo & up) Fluzone IM [...] Unknown Language: Question Answer Notes Languages spoken: Spanish Gnosticism: Question Answer Notes Gnosticism 21 Adventist Tobacco Use: Question Answer Notes Are you a: never smoker REASON FOR REFERRAL No Information VITAL SIGNS Weight .,259 lbs Aug, Height 60 in Aug, BMI 0.051 kg/m2 Aug, Blood pressure systolic 124 mm Hg Aug, Blood pressure diastolic 74 mm Hg Aug, MEDICATIONS Medication SIG (Take, Route, Frequency, Duration) Notes Start Da te End Date Status Vyvanse 70 MG 1 capsule in the morning Orally Once a day for 3 0 day(s) Jul, Not-Taking Topamax 100 MG 1 tablet Orally Twice a day Not-Taking Clotrimazole 1 % 1 application to affected ar ea Externally Twice a day for 30 day(s) Not-Taking Pepcid 40 MG 1 tablet at bedtime Orally Once a day for 30 day(s) Feb, Active Eszopiclone 1 mg 1 tablet immediately before bedtime Orally Once a day for 30 day(s) Jun, Not-Taking Fluoxetine 10 MG 1 capsule in the morning Orally Once a day for 30 da y(s) Not-Taking Amoxicillin 875 MG 1 tablet Orally every 12 hrs for 10 day(s) Jul, Not-Taking Vitamin 27-0.8 MG 1 tablet Orally Once a day Active Jobst Active 15-20mmHg Medium - as directed _varicose veins Daily for 30 day(s) Not-Taking PROCEDURES No Information RESULTS No Results REASON FOR VISIT 2WK PN MEDICAL (GENERAL) HISTORY Type Description Date Medical History Depression Medical History ADHD since childhood Medical History Eczema (carroll. leg) Medical History Dry eye (Followed by [place] [facility]) Surgical History tonsillectomy as child Surgical History [place] tooth extraction Surgical History C section Hospitalization History related to surgery Hospitalization History Depression 2011 Goals Section No Information Health Concerns No Information MEDICAL EQUIPMENT No Information MENTAL STATUS No Information FUNCTIONAL STATUS No Information ASSESSMENTS Encounter Date Diagnosis Assessment Notes Treatment Notes Treatm ent Clinical Notes Aug, 35 weeks gestation of (ICD-10 - Z3A.35 ) Aug, Maternal care due to low tra nsverse uterine scar from previous delivery (ICD-10 - O34.211) Aug, Supervision of elderly multi , third trimester (ICD-10 - O09.523) PLAN OF TREATMENT Treatment Notes Test Name Order Date GROUP B STREP CULTURE 2020-08-21 Next Appt Details 1 Week Reason:return ob Provider Name:Vinicius Baum, 01:00:00 PM, [address] [place] [address], [phone], Provider Name:Yaz Lagunas, 2020-09-02 0 3:20:00 PM, [address] [place] [address], [phone], Provider Name:Rafia Pierre, 2020-09 10:00:00 AM, [address] [place] [address], [phone], Provider Name:Emilia Shoemaker, 2020-09-12 0 7:30:00 AM, [address] [place] [address], [phone], Provider Name:Vinicius Baum, 07:30:00 AM, [address] [place] [address], [address], Provider Name:Vinicius Baum, 01:20:00 PM, [address] [place] [address], [address], Provider Name:Vinicius Baum, 10:20:00 AM, [address] [place] [address], [phone], Follow Up:1 Weekreturn ob Insurance Providers Payer Name Payer Address Payer Phone Insured Name Patient Relati onship to Insured Coverage Start Date Coverage End Date [facility] [place] [phone] [facility] [place] [address] LORAINE CHIRINOS
--- OUTSIDE RECORDS SUMMARY | 2020-09-17 05:30 | CCD ---
Author Author [facility] Organization [facility] Address Unknown Phone Unavailable Care Team Providers Care Baggage Porter Name Role Phone Baum, Vinicius Unavailable PROBLEMS Type Condition ICD9-CM Code [id number] Code Onset Dates Condition S tatus SNOMED Code Notes Problem ADHD (attention deficit hyperactivity disorder) F9 0.9 Active 100989989 Problem Binge eating disorder F50.8 Active 992615383 Problem Obesity, unspecified obesity severity, unspecified obe sity type E66.9 Active 480651130 Problem Obesity complicating in third trimester O99.21 3 Active Problem Depression F32.9 Active 40023346 Problem Obesity E66.9 Active 659034518 Problem Insomnia G47.00 Active 222698994 Problem Tension-type headache, not intractable, unspecified chronicity pattern G44.209 Active 824790816 Problem Moderately severe depression F32.2 Active 450 715388 Problem Heartburn R12 Active 94569165 Problem Supervision of other normal Z34.80 Ac tive 602939226 ALLERGIES No Known Allergies ENCOUNTERS from 1983 to 2020-06-26 Encounter Location Date Provider Diagnosis [facility] [address] [place] [address] Jun, Vinicius Baum Elevated glucose zenaida erance test R73.09 IMMUNIZATIONS Vaccine Route Administration Date Status IPV 0.5mL (Polio) Unknown 1983 Administered IPV 0.5mL (Polio) Unknown 1983 Administered IPV 0.5mL (Polio) Unknown 1983 Administered IPV 0.5mL (Polio) Unknown Sep 28, 1987 Administered MMR 0.5mL Unknown March 06, 1996 Administered TD Adult 0.5mL (Tetanus) Unknown Apr 06, 1996 Adminis tered IPV 0.5mL (Polio) Unknown 1983 Administered DTP Unknown 1983 Administered Hepatitis B Ped & Adol 0.5mL (Engerix-B) Unknown Apr 11, 2001 Administered Hepatitis B Ped & Adol 0.5mL (Engerix-B) Unknown May Administered MMR 0.5mL Unknown Apr 06, 1984 [...] Unknown Language: Question Answer Notes Languages spoken: Tajik Uatsdin: Question Answer Notes Uatsdin 21 Confucianism Tobacco Use: Question Answer Notes Are you a: never smoker REASON FOR REFERRAL No Information VITAL SIGNS No information MEDICATIONS Medication SIG (Take, Route, Frequency, Duration) Start Date En d Date Status Topamax 100 MG 1 tablet Orally Twice a day Not-Taking Fluoxetine 10 MG 1 capsule in the morning Orally Once a day for 30 day(s) Not-Taking Pepcid 40 MG 1 tablet at bedtime Orally Once a day for 30 day(s) Feb, Active Clotrimazole 1 % 1 application to affected ar ea Externally Twice a day for 30 day(s) Not-Taking Amoxicillin 875 MG 1 tablet Orally every 12 hrs for 10 day(s) 17 , 2016 Not-Taking Eszopiclone 1 mg 1 tablet immediately before bedtime Orally Once a day for 30 day(s) Jun, Not-Taking Jobst Active 15-20mmHg Medium - as directed _varicose veins Daily for 30 day(s) Not-Taking Vitamin 27-0.8 MG 1 tablet Orally Once a day Active Vyvanse 70 MG 1 capsule in the morning Orally Once a d ay for 30 day(s) Jul, Not-Taking PROCEDURES No Information RESULTS No Results REASON FOR VISIT Results MEDICAL (GENERAL) HISTORY Type Description Date Medical History Depression Medical History ADHD since childhood Medical History Eczema (carroll. leg) Medical History Dry eye (Followed by [facility]) Surgical History tonsillectomy as child Surgical History [place] tooth extraction Surgical History C section Hospitalization History related to surgery Hospitalization History Depression 2012 Goals Section No Information Health Concerns No Information MEDICAL EQUIPMENT No Information MENTAL STATUS No Information FUNCTIONAL STATUS No Information ASSESSMENTS Encounter Date Diagnosis Notes Jun, Elevated glucose tolerance test (ICD-10 - R73.09) PLAN OF TREATMENT Treatment Notes Test Name Order Date GLUCOSE ZENAIDA 3 HR GESTATIONAL 2020-06-26 Next Appt Details Provider Name:Yulia Ceballos, 2020-07-23 08:00:00 AM, [address] [place] [address], [phone], Provider Name:Vinicius Baum, 01:00:00 PM, [address] [place] [address], [phone], Insurance Providers Payer Name Payer Address Payer Phone Insured Name Patient Relati onship to Insured Coverage Start Date Coverage End Date [place] PPO [phone] [facility] [place] [address] LORAINE CHIRINOS
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
--- OUTSIDE RECORDS SUMMARY | 2020-09-17 05:30 | CCD ---
Author Author [facility] Organization [facility] Address Unknown Phone Unavailable Care Team Providers Care Stewardess Supervisor Name Role Phone Vinicius Baum Unavailable PROBLEMS Type Condition ICD9-CM Code [id number] Code Onset Dates Condition S tatus SNOMED Code Notes Problem ADHD (attention deficit hyperactivity disorder) F9 0.9 Active 756345406 Problem Binge eating disorder F50.8 Active 583706100 Problem Obesity, unspecified obesity severity, unspecified obe sity type E66.9 Active 895167724 Problem Obesity complicating in third trimester O99.21 3 Active Problem Depression F32.9 Active 52939711 Problem Obesity E66.9 Active 472555493 Problem Insomnia G47.00 Active 118203158 Problem Tension-type headache, not intractable, unspecified chronicity pattern G44.209 Active 953688303 Problem Moderately severe depression F32.2 Active 450 794885 Problem Heartburn R12 Active 76668838 Problem Supervision of other normal Z34.80 Ac tive 763227562 ALLERGIES No Known Allergies ENCOUNTERS from 1983 to 2020-07-18 Encounter Location Date Provider Diagnosis [facility] [address] [place] [phone] Jul, Vinicius Baum IMMUNIZATIONS Vaccine Route Administration Date Status IPV [...] Unknown Language: Question Answer Notes Languages spoken: Vietnamese Hoahaoism: Question Answer Notes Hoahaoism 21 Sikhism Tobacco Use: Question Answer Notes Are you [...] Information RESULTS No Results REASON FOR VISIT AUTHORIZATION MEDICAL (GENERAL) HISTORY Type Description Date Medical History Depression Medical History ADHD since childhood Medical History Eczema (carroll. leg) Medical History Dry eye (Followed by [facility] Steph del rosario) Surgical History tonsillectomy as child Surgical History [place] tooth extraction Surgical History C section Hospitalization History related to surgery Hospitalization History Depression 2012 Goals Section No Information Health Concerns No Information MEDICAL EQUIPMENT No Information MENTAL STATUS No Information FUNCTIONAL STATUS No Information ASSESSMENTS No Information PLAN OF TREATMENT Next Appt Details Provider Name:Yulia Ceballos, 2020-07-23 08:00:00 AM, [address] [place] [address], [phone], Provider Name:Vinicius Baum, 01:00:00 PM, [address] [place] [address], [phone], Provider Name:Emilia Shoemaker, 2020-09-12 0 7:30:00 AM, [address] [place] [address], [phone], Provider Name:Vinicius Baum, 07:30:00 AM, [address] [place] [address], [phone], Provider Name:Vinicius Baum, 01:20:00 PM, [address] [place] [address], [phone], Provider Name:Vinicius Baum, 10:20:00 AM, [address] [place] [address], [phone], Insurance Providers Payer Name Payer Address Payer Phone Insured Name Patient Relati onship to Insured Coverage Start Date Coverage End Date BCDEANNA NI PPO [phone] [facility] [place] [id number] LORAINE CHIRINOS
--- OUTSIDE RECORDS SUMMARY | 2020-09-17 05:30 | CCD ---
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 Name Role Phone Tayo Carrillo Unavailable Unavailable Tayo Carrillo Unavailable Unavailable Tayo Carrillo Unavailable Unavailable Tayo Carrillo Unavailable Unavailable Tyao Carrillo Unavailable Unavailable Tayo Carrillo Unavailable Unavailable Tayo Carrillo Unavailable Unavailable Tayo Carrillo Unavailable Unavailable Tayo Carrillo Unavailable Unavailable Tayo Carrillo Unavailable Unavailable Tayo Carrillo Unavailable Unavailable Tayo Carrillo Unavailable Unavailable Lorena, Tayo PA Unavailable Unavailable Lorena, Tayo PA Unavailable Unavailable Lorena, Tayo PA Unavailable Unavailable Lorena, Tayo PA Unavailable Unavailable Lorena, Tayo PA Unavailable Unavailable Lorena, Tayo PA Unavailable Unavailable Lorena, Tayo PA Unavailable Unavailable Lorena, Tayo PA Unavailable Unavailable Lorena, Tayo PA Unavailable Unavailable Lorena, Tayo PA Unavailable Unavailable Lorena, Tayo PA Unavailable Unavailable Lorena, Tayo PA Unavailable Unavailable Lorena, Tayo PA Unavailable Unavailable Lorena, Tayo PA Unavailable Unavailable Lorena, Tayo PA Unavailable Unavailable Lorena, Tayo PA Unavailable Unavailable Lorena, Tayo PA Unavailable Unavailable Lorena, Tayo PA Unavailable Unavailable Lorena, Tayo PA Unavailable Unavailable Lorena, Tayo PA Unavailable Unavailable Lorena, Tayo PA Unavailable Unavailable Lorena, Tayo PA Unavailable Unavailable Lorena, Tayo PA Unavailable Unavailable Lorena, Tayo PA Unavailable Unavailable Lorena, Tayo PA Unavailable Unavailable Lorena, Tayo PA Unavailable Unavailable Lorena, Tayo PA Unavailable Unavailable Lorena, Tayo PA Unavailable Unavailable Lorena, Tayo PA Unavailable Unavailable Lorena, Tayo PA Unavailable Unavailable Lorena, Tayo PA Unavailable Unavailable Lorena, Tayo PA Unavailable Unavailable Lorena, Tayo PA Unavailable Unavailable Lorena, Tayo PA Unavailable Unavailable Lorena, Tayo PA Unavailable Unavailable Lorena, Tayo PA Unavailable Unavailable Royal, Estephanie V BELT CURER Unavailable Unavailable Royal, Estephanie V BELT CURER Unavailable Unavailable Royal, Estephanie V BELT CURER Unavailable Unavailable Royal, Estephanie V BELT CURER Unavailable Unavailable Royal, Estephanie V BELT CURER Unavailable Unavailable Royal, Estephanie V BELT CURER Unavailable Unavailable Royal, Estephanie V BELT CURER Unavailable Unavailable Royal, Estephanie V BELT CURER Unavailable Unavailable Royal, Estephanie V BELT CURER Unavailable Unavailable Royal, Estephanie V BELT CURER Unavailable Unavailable Royal, Esetphanie V BELT CURER Unavailable Unavailable O'mary, A Radha PA Unavailable Unavailable O'mary, A Radha PA Unavailable Unavailable O'mary, A Radha PA Unavailable Unavailable O'mary, A Radha PA Unavailable Unavailable O'mary, A Radha PA Unavailable Unavailable O'mary, A Radha PA Unavailable Unavailable O'mary, A Radha PA Unavailable Unavailable O'mary, A Radha PA Unavailable Unavailable O'mary, A Radha PA Unavailable Unavailable O'mary, A Radha PA Unavailable Unavailable O'mary, A Radha PA Unavailable Unavailable O'mary, A Radha PA Unavailable Unavailable O'mary, A Radha PA Unavailable Unavailable O'mary, A Radha PA Unavailable Unavailable O'mary, A Radha PA Unavailable Unavailable O'mary, A Radha PA Unavailable Unavailable O'mary, A Radha PA Unavailable Unavailable O'mary, A Radha PA Unavailable Unavailable O'mary, A Radha PA Unavailable Unavailable O'mary, A Radha PA Unavailable Unavailable O'mary, A Radha PA Unavailable Unavailable O'mary, A Radha PA Unavailable Unavailable O'mary, A Radha PA Unavailable Unavailable O'mary, A Rahda PA Unavailable Unavailable O'mary, A Radha PA Unavailable Unavailable O'mary, A Radha PA Unavailable Unavailable O'mary, A Radha PA Unavailable Unavailable O'mary, A Radha PA Unavailable Unavailable O'mary, A Radha PA Unavailable Unavailable O'mary, A Radha PA Unavailable Unavailable O'mary, A Radha PA Unavailable Unavailable O'mary, A Radha PA Unavailable Unavailable LETTIERE, A RADHA PA Unavailable Unavailable LETTIERE, A RADHA PA Unavailable Unavailable LETTIERE, A RADHA PA Unavailable Unavailable LETTIERE, A RADHA PA Unavailable Unavailable LETTIERE, A RADHA PA Unavailable Unavailable LETTIERE, A RADHA PA Unavailable Unavailable LETTIERE, A RADHA PA Unavailable Unavailable LETTIERE, A RADHA PA Unavailable Unavailable LETTIERE, A RADHA PA Unavailable Unavailable LETTIERE, A RADHA PA Unavailable Unavailable LETTIERE, A RADHA PA Unavailable Unavailable LETTIERE, A RADHA PA Unavailable Unavailable LETTIERE, A RADHA PA Unavailable Unavailable LETTIERE, A RADHA PA Unavailable Unavailable LETTIERE, A RADHA PA Unavailable Unavailable LETTIERE, A RADHA PA Unavailable Unavailable LETTIERE, A RADHA PA Unavailable Unavailable LETTIERE, A RADHA PA Unavailable Unavailable LETTIERE, A RADHA PA Unavailable Unavailable LETTIERE, A RADHA PA Unavailable Unavailable LETTIERE, A RADHA PA Unavailable Unavailable LETTIERE, A RADHA PA Unavailable Unavailable LETTIERE, A RADHA PA Unavailable Unavailable LETTIERE, A RADHA PA Unavailable Unavailable LETTIERE, A RADHA PA Unavailable Unavailable LETTIERE, A RADHA PA Unavailable Unavailable LETTIERE, A RADHA PA Unavailable Unavailable LETTIERE, A RADHA PA Unavailable Unavailable LETTIERE, A RADHA PA Unavailable Unavailable Re-disclosure Warning The records that you are about to access may contain information from federally-assisted alcohol or drug abuse programs. If such information is present, then the following federally mandated warning applies: This information has been disclosed to you from records protected by federal confidentiality rules (42 CFR part 2). The federal rules prohibit you from making any further disclosure of this information unless further disclosure is expressly permitted by the written consent of the person to whom it pertains or as otherwise permitted by 42 CFR part 2. A general authorization for the release of medical or other information is NOT sufficient for this purpose. The Federal rules restrict any use of the information to criminally investigate or prosecute any alcohol or drug abuse patient.The records that you are about to access may contain highly sensitive health information, the redisclosure of which is protected by Article 27-F of the [facility] Public Health law. If you continue you may have access to information: Regarding HIV / AIDS; Provided by facilities licensed or operated by the [facility] Office of Mental Health; or Provided by the [facility] Office for People With Developmental Disabilities. If such information is present, then the following [facility] mandated warning applies: This information has been disclosed to you from confidential records which are protected by state law. State law prohibits you from making any further disclosure of this information without the specific written consent of the person to whom it pertains, or as otherwise permitted by law. Any unauthorized further disclosure in violation of state law may result in a fine or prison sentence or both. A general authorization for the release of medical or other information is NOT sufficient authorization for further disc losure. Family History Family Member Name Family Member Gender Family Member Status Date o f Status Description Data Source(s) Unknown Unknown Problem MEDENT ([facility]) both parents Unknown Male Problem [facility] ([facility]) Unknown Male Problem [facility] ([facility] Unknown Unknown Problem [facility] ([facility] Encounters Encounter Providers Location Date Indications Data Source(s ) ( ESTOB) enter Est OB [address] [place] [address] 09/10/2020 12:00:00 AM EST eCW1 ([facility]) Outpatient Attender: RADHA larose 09/03/2020 05:50:00 PM EST MEDENT ([facility]) (WC ESTOB) [facility] [address] [place] [address] 09/02/2020 12:00:00 AM EST eCW1 ([facility]) (WC ESTOB) [facility] [address] [place] [address] 08/25/2020 12:00:00 AM EST eCW1 ([facility]) (WC ESTOB) [facility] [address] [place] [address] 08/19/2020 12:00:00 AM EST eCW1 ([facility]) (WC ESTOB) [facility] [address] [place] [address] 08/05/2020 12:00:00 AM EST eCW1 ([facility]) (WC ESTOB) [facility] [address] [place] [address] 07/23/2020 12:00:00 AM EST eCW1 ([facility]) Unknown [address] [facility] [address] 07/18/2020 12:00:00 AM EST eCW1 ([facility]) (WC ESTOB) [facility] [address] [place] [address] 06/25/2020 12:00:00 AM EDT eCW1 ([facility]) Unknown [address] [facility] [address] 06/20/2020 12:00:00 AM EDT eCW1 ([facility]) [place] [address] [facility] [place] [address] 06/19/2020 12:00:00 AM EDT eCW1 ([facility]) (WC ESTOB) [facility] Est OB [address] [place] [address] 03/05/2020 12:00:00 AM EDT eCW1 ([facility]) Outpatient Attender: Tayo DESOUZA [facility] 02/26/2020 04:00:00 PM EDT MEDENT ([facility]) (WC ESTOB) [facility] Est OB [address] [place] [address] 02/11/2020 12:00:00 AM EDT eCW1 ([facility]) Outpatient Attender: Radha DESOUZA [facility] 01/31/2020 11:30:00 AM EDT MEDENT ([facility]) Outpatient Attender: Radha DESOUZA [facility] 11/12/2019 10:20:00 AM EDT MEDENT ([facility]) Outpatient Attender: Radha DESOUZA [facility] 10/17/2019 07:40:00 AM EST MEDENT ([facility]) Outpatient Attender: Estephanie alexander 10/15/2019 02:25:00 PM EST MEDENT ([facility]) Outpatient Attender: Radha DESOUZA [facility] 09/13/2019 10:20:00 AM EST MEDENT ([facility]) Immunizations Vaccine Date Status Description Data Source(s) New in 2011. IIV4 07/23/2020 08:34:00 AM EST completed eCW1 (Replaced By [facility]) New in 2011. IIV4 07/23/2020 08:34:00 AM EST completed eCW1 (Replaced By [facility]) New in 2011. IIV4 07/23/2020 08:34:00 AM EST completed eCW1 (Replaced By [facility]) New in 2011. IIV4 07/23/2020 08:34:00 AM EST completed eCW1 (Replaced By [facility]) New in 2011. IIV4 07/23/2020 08:34:00 AM EST completed eCW1 (Replaced By [facility]) New in 2011. IIV4 07/23/2020 08:34:00 AM EST completed eCW1 (Replaced By [facility]) New in 2011. IIV4 07/23/2020 08:34:00 AM EST completed eCW1 (Replaced By [facility]) Tdap 07/23/2020 08:33:00 AM EST completed e CW1 (Replaced By [facility]) Tdap 07/23/2020 08:33:00 AM EST completed e CW1 (Replaced By [facility]) Tdap 07/23/2020 08:33:00 AM EST completed e CW1 (Replaced By [facility]) Tdap 07/23/2020 08:33:00 AM EST completed e CW1 (Replaced By [facility]) Tdap 07/23/2020 08:33:00 AM EST completed e CW1 (Replaced By [facility]) Tdap 07/23/2020 08:33:00 AM EST completed e CW1 (Replaced By [facility]) Tdap 07/23/2020 08:33:00 AM EST completed e CW1 (Replaced By [facility]) Medications Medication Brand Name Start Date Product Form Dose Route Admi nistrative Instructions Pharmacy Instructions Status Indications Reaction Description Data Source(s) No Active Medications 09/03/2020 12:00:00 AM EST completed MEDENT ([facility], [facility]) silver sulfadiazine 10 MG/ML Topical Cream [Silvadene] Galeano dene 02/26/2020 12:00:00 AM EDT TOPICAL active MEDENT ([facility]) Famotidine 40 MG Oral Tablet [Pepcid] Pepcid 40 MG Pepcid 40 MG 02/11/2020 12:00:00 AM EDT 1.0 {tablet_at_bedtime} active Pepcid 40 MG eCW1 (Replaced By [facility]) Famotidine 40 MG Oral Tablet [Pepcid] Pepcid 40 MG Pepcid 40 MG 02/11/2020 12:00:00 AM EDT 1.0 {tablet_at_bedtime} active Pepcid 40 MG eCW1 (Replaced By [facility]) Famotidine 40 MG Oral Tablet [Pepcid] Pepcid 40 MG Pepcid 40 MG 02/11/2020 12:00:00 AM EDT 1.0 {tablet_at_bedtime} active Pepcid 40 MG eCW1 (Replaced By [facility]) Famotidine 40 MG Oral Tablet [Pepcid] Pepcid 40 MG Pepcid 40 MG 02/11/2020 12:00:00 AM EDT 1.0 {tablet_at_bedtime} active Pepcid 40 MG eCW1 (Replaced By [facility]) Famotidine 40 MG Oral Tablet [Pepcid] Pepcid 40 MG Pepcid 40 MG 02/11/2020 12:00:00 AM EDT 1.0 {tablet_at_bedtime} active Pepcid 40 MG eCW1 (Replaced By [facility]) Famotidine 40 MG Oral Tablet [Pepcid] Pepcid 40 MG Pepcid 40 MG 02/11/2020 12:00:00 AM EDT 1.0 {tablet_at_bedtime} active Pepcid 40 MG eCW1 (Replaced By [facility]) Famotidine 40 MG Oral Tablet [Pepcid] Pepcid 40 MG Pepcid 40 MG 02/11/2020 12:00:00 AM EDT 1.0 {tablet_at_bedtime} active Pepcid 40 MG eCW1 (Replaced By [facility]) Famotidine 40 MG Oral Tablet [Pepcid] Pepcid 40 MG Pepcid 40 MG 02/11/2020 12:00:00 AM EDT 1.0 {tablet_at_bedtime} active Pepcid 40 MG eCW1 (Replaced By [facility]) Famotidine 40 MG Oral Tablet [Pepcid] Pepcid 40 MG Pepcid 40 MG 02/11/2020 12:00:00 AM EDT 1.0 {tablet_at_bedtime} active Pepcid 40 MG eCW1 (Replaced By [facility]) Famotidine 40 MG Oral Tablet [Pepcid] Pepcid 40 MG Pepcid 40 MG 02/11/2020 12:00:00 AM EDT 1.0 {tablet_at_bedtime} active Pepcid 40 MG eCW1 (Replaced By [facility]) Famotidine 40 MG Oral Tablet [Pepcid] Pepcid 40 MG Pepcid 40 MG 02/11/2020 12:00:00 AM EDT 1.0 {tablet_at_bedtime} active Pepcid 40 MG eCW1 (Replaced By [facility]) Famotidine 40 MG Oral Tablet [Pepcid] Pepcid 40 MG Pepcid 40 MG 02/11/2020 12:00:00 AM EDT 1.0 {tablet_at_bedtime} active Pepcid 40 MG eCW1 (Replaced By [facility]) atomoxetine 40 MG Oral Capsule [Strattera] Strattera 12/10 12:00:00 AM EDT ORAL completed MEDENT ([facility]) lisdexamfetamine dimesylate 50 MG Oral Capsule [Vyvanse] Vyv anse 11/12/2019 12:00:00 AM EDT ORAL completed MEDENT ([facility]) Ergocalciferol 94013 UNT Oral Capsule Vitamin D (Ergocalcife rol) 11/12/2019 12:00:00 AM EDT completed MEDENT ([facility]) Trazodone Hydrochloride 50 MG Oral Tablet Trazodone HCL 11/12/2019 12:00:00 AM EDT ORAL completed MEDENT ([facility]) Mouthwash-Om 10/17/2019 12:00:00 AM EST compl eted MEDENT ([facility]) Fluticasone Propionate Fluticasone Propionate 10/17/2019 12:00:[address] active MEDENT ([facility]) Oseltamivir 75 MG Oral Capsule Oseltamivir Phosphate 10/15/2019 12:00:00 AM EST ORAL active MEDENT ( [facility]) No Active Medications 10/15/2019 12:00:00 AM EST completed MEDENT ([facility]) lisdexamfetamine dimesylate 40 MG Oral Capsule [Vyvanse] Vyv anse 09/13/2019 12:00:00 AM EST ORAL completed MEDENT ([facility]) 24 HR venlafaxine 37.5 MG Extended Release Oral Capsule Venl afaxine HCL ER 09/13/2019 12:00:00 AM EST ORAL completed MEDENT ([facility]) Ergocalciferol 48342 UNT Oral Capsule Vitamin D (Ergocalcife rol) 07/17/2019 12:00:00 AM EST ORAL completed MEDENT ([facility]) BD Pen Needle/Sharonda/Ultra -Fine/32G X 4mm 03/14/2019 12:00:00 AM EDT completed MEDENT ([facility]) Insurance Providers Payer name Policy type / Coverage type Policy ID Covered green party ID Covered green party's relationship to agustin Policy Agustin Plan Information [employer] [place] 302/307 [id number] SP [id number] [place] [place] P[place] 302/307 [id number] SP [id number] EXCELLUS BCBS B [id number] S [id number] [place] [place] PPO 302/307 [id number] SP [id number] [employer] U/W Commercial [id number] Self [id number] [employer] U/W Commercial [id number] Self [id number] MVP Commercial [id number] Self [id number] [employer] U/W Commercial [id number] Self [id number] [employer] U/W Commercial [id number] Self [id number] [employer] U/W Commercial [id number] Self [id number] [employer] U/W Commercial [id number] Self [id number] [employer] U/W Commercial [id number] Self [id number] [employer] U/W Commercial [id number] Self [id number] [place] [place] PPO 302/307 [id number] SP [id number] [employer] U/W Commercial [id number] Self [id number] [employer] U/W Commercial [id number] Self [id number] [employer] U/W Commercial [id number] Self [id number] [employer] U/W Commercial [id number] Self [id number] [place] [place] PPO 302/307 [id number] SP [id number] [place] [place] PPO 302/307 [id number] SP [id number] SELF PAY O UNAVAILABLE S UNAVAILA BLE EXCELLUS BCBS B [id number] S [id number] [place] PPO 302/307 [id number] SP [id number] [employer] U/W Commercial [id number] Self [id number] BCBS/Excell[employer] Commercial [id number] Self [id number] [employer] U/W Commercial [id number] Self [id number] BCBS OF [place] BC [id number] S [id number] [id number] MVP Health Care Commercial Self MVP [id number] SP [id number] [employer] HEALTH CARE O [id number] S [id number] BS [id number] B [id number] S [id number] MVP [id number] [id number] SP [id number] [employer] Health Maintenance Organization (HMO) Se lf [facility] Health Maintenance Organization (HMO) Family Dependent SELF PAY UNAVAILABLE SP UNAVAILA BLE [id number] Problems, Conditions, and Diagnoses Code Display Name Description Problem Type Effective Dates Data Source(s) E66.9 Obesity Obesity Problem 06/25/2020 12:00:00 AM ED T eCW1 (Replaced By [facility]) O99.213 Obesity complicating , third tr imester Obesity complicating in third trimester Problem 06/25/2020 12:00:00 AM EDT eCW1 (Replaced By [facility]) R12 Heartburn Heartburn Problem 02/11/2020 12:00:00 AM ED T eCW1 (Replaced By [facility]) Z34.80 care Supervision of other normal P roblem 02/04/2020 12:00:00 AM EDT eCW1 (Replaced By [facility]) Surgeries/Procedures Procedure Description Date Indications Data Source(s) INFLUENZA VIRUS VACC SPLIT PRSRV FREE 3 YRS/> IM 07/23 12:00:00 AM EST eCW1 (Replaced By [facility]) Immunization: Boostrix 0.5mL IM (TDAP) 07/23/2020 12:0 0:00 AM EST eCW1 (Replaced By [facility]) Results ID Date Data Source [id number] 09/03/2020 12:00:00 AM EST [place] Name Value Range Interpretation Code Description Data Risa rce(s) Supporting Document(s) SARS-CoV2 Rapid Antigen [facility] This lab was reported by Emmanuel Yanes. ID Date Data Source [id number] 06/23/2020 08:43:00 AM EDT [facility] ([facility]) Name Value Range Interpretation Code Description Data Risa rce(s) Supporting Document(s) Calcidiol [Mass/volume] in Serum or Plasma 36.3 ng/mL 30.0- 100.0 Normal (applies to non-numeric results) [facility] ([facility]) ID Date Data Source [id number] 06/23/2020 08:43:00 AM EDT [facility] ([facility]) Name Value Range Interpretation Code Description Data Risa rce(s) Supporting Document(s) Thyroid Stimulating Hormone 1.650 uIU/ML 0.358-3.740 Norm al (applies to non- numeric results) [facility] ([facility]) Free T4 1.10 ng/dL 0.76-1.46 Normal (applies to non-numeric resul ts) [facility] ([facility]) ID Date Data Source [id number] 06/23/2020 08:43:00 AM EDT [facility] ([facility]) Name Value Range Interpretation Code Description Data Risa rce(s) Supporting Document(s) Red Blood Count 4.04 10 4.00-5.40 Normal (applies to non-numeric results) [facility] ([facility]) White Blood Count 8.6 10 4.0-10.0 Normal (applies to non-numeri c results) [facility] ([facility]) Hematocrit 37.5 % 36.0-47.0 Normal (applies to non-numeric resul ts) [facility] ([facility]) Mean Corpuscular Volume 92.8 fl 80.0-96.0 Normal ( applies to non-numeric results) [facility] ([facility]) Hemoglobin 12.1 g/dL 12.0-15.5 Normal (applies to non-numeric resul ts) [facility] ([facility]) Red Cell Distribution Width 13.8 % 11.5-14.5 Norm al (applies to non-numeric results) [facility] ([facility]) Mean Corpuscular Hemoglobin 30.0 pg 27.0-33.0 Norm al (applies to non-numeric results) [facility] ([facility]) Platelet Count, Automated 212 10 150-450 Normal (applies to non-numeric results) [facility] ([facility]) Mean Corpuscular HGB Conc 32.3 g/dL 32.0-36.5 Normal (applies to non-numeric results) [facility] ([facility]) Kleberg % 7.9 % 0.0-5.0 Above high normal MED[facility] ([facility]) Lymph % 20.4 % 24.0-44.0 Below low normal MED[facility] ( [facility]) Neutrophils % 67.8 % 36.0-66.0 Above high normal MEDE NT ([facility]) Eos % 1.9 % 0.0-3.0 Normal (applies to non-numeric resul ts) [facility] ([facility]) Immature Granulocyte % 1.6 % 0-3.0 Normal (applies to non-n umeric results) [facility] ([facility]) Baso % 0.4 % 0.0-1.0 Normal (applies to non-numeric resul ts) [facility] ([facility]) Neutrophils # 5.8 10 1.5-8.5 Normal (applies to non-numeric re sults) [facility] ([facility]) Nucleated Red Blood Cell % 0.0 % 0-0 Normal (applies to n on-numeric results) [facility] ([facility]) Lymph # 1.8 10 1.5-5.0 Normal (applies to non-numeric resul ts) [facility] ([facility]) Baso # 0.0 10 0.0-0.2 Normal (applies to non-numeric resul ts) [facility] ([facility]) Eos # 0.2 10 0.0-0.5 Normal (applies to non-numeric resul ts) [facility] ([facility]) Kleberg # 0.7 10 0.0-0.8 Normal (applies to non-numeric resul ts) [facility] ([facility]) ID Date Data Source [id number] 06/23/2020 08:43:00 AM EDT MED[facility] ([facility] [facility]) Name Value Range Interpretation Code Description Data Risa rce(s) Supporting Document(s) Blood Urea Nitrogen 11 mg/dL 7-18 Normal (applies to non-nume sameer results) [facility] ([facility]) Glucose, Fasting 69 mg/dL 70-100 Below low normal [facility] ([facility]) Creatinine For GFR 0.54 mg/dL 0.55-1.30 Below low normal [facility] ([facility]) Glomerular Filtration Rate Laboratory test result Normal (applies to non- numeric results) [facility] ([facility]) <content>Units are mL/min/1.73 m2</content>
<content></content>
<content>Chronic Kidney Disease Staging per NKF:</content>
<content></content>
<content>Stage I & II GFR >=60 Normal to Mildly Decreased</content>
<content>Stage III GFR 30- 59 Moderately Decreased</content>
<content>Stage IV GFR 15-29 Severely Decreased</content>
<content>Stage V GFR <15 Very Little GFR Left</content>
<content>ESRD GFR <15 on HISTOPATHOLOGIST</content>
<content></content> Potassium Serum 4.2 meq/L 3.5-5.1 Normal (applies to non-numeric results) [facility] ([facility]) Sodium Level 140 meq/L 136-145 Normal (applies to non-numeric res ults) [facility] ([facility]) Chloride Level 107 meq/L 98-107 Normal (applies to non-numeric r esults) [facility] ([facility]) Anion Gap 7 meq/L 8-16 Below low normal [facility] ( [facility]) Carbon Dioxide Level 26 meq/L 21-32 Normal (applies to non-num jason results) [facility] ([facility]) Calcium Level 8.4 mg/dL 8.5-10.1 Below low normal [facility] ([facility]) ID Date Data Source [id number] 06/18/2020 09:47:00 AM EDT [facility] ([facility]) Name Value Range Interpretation Code Description Data Risa rce(s) Supporting Document(s) Blood Type Laboratory test result Normal (applies to non-n umeric results) [facility] ([facility]) AB Screen (Indirect Ina)Vis Laboratory test result Normal (applies to non- numeric results) [facility] ([facility]) ID Date Data Source [id number] 06/18/2020 09:47:00 AM EDT [facility] ([facility]) Name Value Range Interpretation Code Description Data Risa rce(s) Supporting Document(s) Glucose [Mass/volume] in Serum or Plasma --1 hour post XXX c hallenge 136 mg/dL Normal (applies to non-numeric results) [facility] ([facility]) ID Date Data Source [id number] 06/18/2020 09:47:00 AM EDT [facility] ([facility]) Name Value Range Interpretation Code Description Data Risa rce(s) Supporting Document(s) White Blood Count 10.0 10 4.0-10.0 Normal (applies to non-numeri c results) [facility] ([facility]) Hematocrit 36.9 % 36.0-47.0 Normal (applies to non-numeric resul ts) [facility] ([facility]) Mean Corpuscular Volume 93.2 fl 80.0-96.0 Normal ( applies to non-numeric results) [facility] ([facility]) Red Blood Count 3.96 10 4.00-5.40 Below low normal [facility] ([facility]) Hemoglobin 12.0 g/dL 12.0-15.5 Normal (applies to non-numeric resul ts) [facility] ([facility]) Mean Corpuscular Hemoglobin 30.3 pg 27.0-33.0 Norm al (applies to non-numeric results) [facility] ([facility]) Mean Corpuscular HGB Conc 32.5 g/dL 32.0-36.5 Normal (applies to non-numeric results) [facility] ([facility]) Red Cell Distribution Width 13.8 % 11.5-14.5 Norm al (applies to non-numeric results) [facility] ([facility]) Platelet Count, Automated 195 10 150-450 Normal (applies to non-numeric results) [facility] ([facility]) Nucleated Red Blood Cell % 0.0 % 0-0 Normal (applies to n on-numeric results) [facility] ([facility]) ID Date Data Source [id number] 04/29/2020 12:00:00 AM EDT [facility] Carmenza Lagunas Cnm Patient Name: ROBERT [id number] [facility] Date of : 1985[place] [address] Date of Exam: 04/29/2020PH#: Fax: [phone] EXAM: US OB 2ND & 3RD TRIMESTER, COMPLETE- SINGLE FETUSCLINICAL INFORMATION: Supervision of . 2, Para 1LMP: 11/11/2019 = 24 weeks 2 days, DONA(LMP) = 08/17/2020Today's sono findings = 20 weeks 0 days, DONA (today's sono) = 09/16/2020Fetal Number: SingletonFetal Position: BreechFetal Heart Rate: 124 BPMPlacental Position: Left lateral, Grade 1Amniotic Fluid Volume: NormalCervix Length: 4.5 cmFETAL MEASUREMENTS:BPD: 5.0 cm = 21 weeks 0 daysHC: 17.8 cm = 20 weeks 2 daysAC: 15.1 cm = 20 weeks 2 daysFL: 3.0 cm = 19 weeks 2 daysHL: 2.9 cm = 19 weeks 3 daysEstimated Weight: 323 grams, 11 ounces, <3% percentileThe following structures are visualized and are unremarkable:Cranium, cavum, cerebellum, posterior fossa-cisterna magna, choroid plexus,midline falx, lateral ventricles , orbits, face-profile, face-lips/mouth,neck, RVOT, LVOT, diaphragm, stomach, kidneys, bladder, abdominal wall,cord insertion, umbilical arteries, 3-vessel cord, color Doppler, spine andupper and lower extremities.Followup in two weeks to reassess the heart to document fourchambers.Accredited by the [employer] in Obstetrical Ultrasound.TREVER Shin/BibiECTRONICALLY SIGNED BY: Casey Rivera DO 04/30/2020 15:03 ADDENDUM: Dictated by: Arnold Kelly MD 05/06/2020 11:37The addendum is performed at the request of the linter tender and concernsthe weight percentile.On the original dictation, the estimated weight is 323 grams, 0pounds 11 ounces. On the original dictation gestational age by LMP is 24weeks 2 days with an DONA of 08/17/2020 and the gestational age by theultrasound was 20 weeks 4 days with an DONA of 09/16/2020.On original study using the LMP, gestational age, the weight percentile wasless than 3%.However, using the ultrasound gestational age of 20 weeks 0 days and fetalweight of 323 grams, the weight percentile is 43%.In addition, we have discovered that the patient had a first trimesterultrasound elsewhere which we were unaware at the time of our initialdictation and the due date on the outside first trimester ultrasound is09/19/2020. Measurements made during a first trimester ultrasound areusually most accurate measurements for age and the measurements madeat the initial first trimester ultrasound correspond more closely with thesecond trimester ultrasound age performed at this time rather than the LMPdating.Thank you for referring LORAINE CHIRINOS to our office. Electronically Signed - ARNOLD KELLY MD 05/06/20 13:36 Name Value Range Interpretation Code Description Data Risa rce(s) Supporting Document(s) ID Date Data Source CBC with Differential 03/19/2020 02:12:40 AM EDT eCW1 ([facility]) Name Value Range Interpretation Code Description Data Risa rce(s) Supporting Document(s) 13.4 eCW1 ([facility]) 4.40 eCW1 ([facility]) 8.6 eCW1 ([facility]) 40.8 eCW1 ([facility]) 13.6 eCW1 ([facility]) 30.5 eCW1 ([facility]) 32.8 eCW1 ([facility]) 92.7 eCW1 ([facility]) 236 eCW1 ([facility]) 6.1 eCW1 ([facility]) 72.9 eCW1 ([facility]) 18.8 eCW1 ([facility]) 6.3 eCW1 ([facility]) 1.6 eCW1 ([facility]) 0.2 eCW1 ([facility]) 1.4 eCW1 ([facility]) 0.1 eCW1 ([facility]) 0.5 eCW1 ([facility]) 0.0 eCW1 ([facility]) ID Date Data Source CHLAMYDIA & GC DNA AMPLIFICAT 03/10/2020 10:09:41 AM EDT eCW 1 (Replaced By [facility]) Name Value Range Interpretation Code Description Data Risa rce(s) Supporting Document(s) Chlamydia trachomatis rRNA [Presence] in Unspecified specimen by Probe and target amplification method NEGATIVE eCW1 (Replaced By [facility]) ID Date Data Source URINE CULTURE 03/10/2020 10:09:38 AM EDT eCW1 ([facility]) Name Value Range Interpretation Code Description Data Risa rce(s) Supporting Document(s) Laboratory studies (set) URINE CULTU RE eCW1 (Replaced By [facility]) ID Date Data Source Glucose Challenge Test 1 Hour 03/10/2020 10:09:02 AM EDT eCW 1 (Replaced By [facility]) Name Value Range Interpretation Code Description Data Risa rce(s) Supporting Document(s) 91 eCW1 ([facility]) ID Date Data Source Type and Screen Prenatal1 03/10/2020 10:08:56 AM EDT eCW1 ([facility]) Name Value Range Interpretation Code Description Data Risa rce(s) Supporting Document(s) NEGATIVE eCW1 ([facility]) ID Date Data Source HBSAG 03/10/2020 10:08:43 AM EDT eCW1 ([facility]) Name Value Range Interpretation Code Description Data Risa rce(s) Supporting Document(s) NEGATIVE eCW1 ([facility]) ID Date Data Source HEPATITIS C ANTIBODY INDEX 03/10/2020 10:08:39 AM EDT eCW1 ( Replaced By [facility]) Name Value Range Interpretation Code Description Data Risa rce(s) Supporting Document(s) 0.1 eCW1 ([facility]) ID Date Data Source RUBELLA IMMUNE STATUS IgG 03/10/2020 10:08:36 AM EDT eCW1 ([facility]) Name Value Range Interpretation Code Description Data Risa rce(s) Supporting Document(s) IMMUNE eCW1 ([facility]) ID Date Data Source SYPHILIS ANTIBODY (RPR SCREEN) 03/10/2020 10:08:33 AM EDT eC W1 (Replaced By [facility]) Name Value Range Interpretation Code Description Data Risa rce(s) Supporting Document(s) NONREACTIVE eCW1 ([facility]) ID Date Data Source [id number] 03/10/2020 10:08:29 AM EDT eCW1 ([facility]) Name Value Range Interpretation Code Description Data Risa rce(s) Supporting Document(s) eCW1 ([facility]) ID Date Data Source [id number] 03/06/2020 09:31:00 AM EDT [facility] ([facility]) Name Value Range Interpretation Code Description Data Risa rce(s) Supporting Document(s) Hepatitis C virus Ab [Units/volume] in Serum by Immunoassay 0.1 INDEX Normal (applies to non-numeric results) [facility] ([facility]) Negative Not infected with HCV, unless recent infection is suspected or other evidence exists to indicate HCV infection. Hepatitis B virus surface Ag [Presence] in Serum or Pl asma by Immunoassay Laboratory test result Normal (applies to non-numeric results) [facility] ([facility]) Reagin Ab [Presence] in Serum by RPR Laboratory test result Normal (applies to non-numeric results) [facility] ([facility]) Glucose [Mass/volume] in Serum or Plasma --1 hour post XXX chall enge 91 mg/dL Normal (applies to non-numeric results) [facility] ([facility]) HIV 1+2 Ab [Presence] in Serum Laboratory test result Normal (applies to non- numeric results) [facility] ([facility]) <content>This assay was performed utiliz ing a chemiluminescent</content>
<content>principle technique for the simultaneous qualitative</content>
<content>detection of HIV-1 p24 antigen & antibodies to HIV-1</content>
<content>(including group O) & HIV-2 using the Siemens Centaur XP</content>
<content>system.</content>
<content>The estimated 95% confidence interval for sensitivity of</content>
<content>this antigen/antibody combination assay for HIV-1&2</content>
<content>antibodies is 99.7-100% and HIV p24 antigen is 89.4-99.9%.</content>
<content>The estimated 95% confidence interval for specificity of</content>
<content>this antigen/antibody combination in low risk populations is</content>
<content>99.6-99.8%.</content>
<content></content> Rubella virus IgG Ab [Units/volume] in Serum or Plasma by Immunoassay Laboratory test result Normal (applies to non-numeric results) [facility]) THE RUBELLA RESULT WAS OBTAINED WITH THE CENTAUR RUBELLA IGG ASSAY. IgG VALUES FROM ANOTHER MANUFACTURERS' METHOD MAY NOT BE USED INTERCHANGEABLY. MAGNITUDE OF LEVEL CANNOT BE CORRELATED TO AN ENDPOINT TITER. SUSCEPTIBLE 0.00-5.00 IU/ML EQUIVOCAL 5.01-9.99 IU/ML IMMUNE > 10.00 IU/ML ID Date Data Source [id number] 03/06/2020 09:31:00 AM EDT [facility]) Name Value Range Interpretation Code Description Data Risa rce(s) Supporting Document(s) AB Screen PNP1 Gel (Vis) Laboratory test result Normal (applies to non- numeric results) [facility] ([facility]) Blood Type Laboratory test result Normal (applies to non-n umeric results) [facility]) ID Date Data Source [id number] 03/06/2020 09:31:00 AM EDT [facility]) Name Value Range Interpretation Code Description Data Risa rce(s) Supporting Document(s) White Blood Count 8.6 10 4.0-10.0 Normal (applies to non-numeri c results) [facility] ([facility]) Hematocrit 40.8 % 36.0-47.0 Normal (applies to non-numeric resul ts) [facility] ([facility]) Red Blood Count 4.40 10 4.00-5.40 Normal (applies to non-numeric results) [facility]) Hemoglobin 13.4 g/dL 12.0-15.5 Normal (applies to non-numeric resul ts) [facility]) Mean Corpuscular Volume 92.7 fl 80.0-96.0 Normal ( applies to non-numeric results) [facility] ([facility]) Red Cell Distribution Width 13.6 % 11.5-14.5 Norm al (applies to non-numeric results) [facility]) Mean Corpuscular Hemoglobin 30.5 pg 27.0-33.0 Norm al (applies to non-numeric results) [facility] ([facility]) Mean Corpuscular HGB Conc 32.8 g/dL 32.0-36.5 Normal (applies to non-numeric results) [facility] ([facility]) Kleberg % 6.1 % 0.0-5.0 Above high normal [facility] ([facility]) Platelet Count, Automated 236 10 150-450 Normal (applies to non-numeric results) [facility] ([facility]) Neutrophils % 72.9 % 36.0-66.0 Above high normal [facility] ([facility]) Lymph % 18.8 % 24.0-44.0 Below low normal [facility] ( [facility]) Eos % 1.4 % 0.0-3.0 Normal (applies to non-numeric resul ts) [facility] ([facility]) Immature Granulocyte % 0.6 % 0-3.0 Normal (applies to non-n umeric results) [facility] ([facility]) Baso % 0.2 % 0.0-1.0 Normal (applies to non-numeric resul ts) [facility] ([facility]) Kleberg # 0.5 10 0.0-0.8 Normal (applies to non-numeric resul ts) [facility] ([facility]) Nucleated Red Blood Cell % 0.0 % 0-0 Normal (applies to n on-numeric results) [facility] ([facility]) Lymph # 1.6 10 1.5-5.0 Normal (applies to non-numeric resul ts) [facility] ([facility]) Neutrophils # 6.3 10 1.5-8.5 Normal (applies to non-numeric re sults) [facility] ([facility]) Baso # 0.0 10 0.0-0.2 Normal (applies to non-numeric resul ts) [facility] ([facility]) Eos # 0.1 10 0.0-0.5 Normal (applies to non-numeric resul ts) [facility] ([facility]) ID Date Data Source [id number] 03/06/2020 08:28:00 AM EDT [facility] ([facility]) Name Value Range Interpretation Code Description Data Risa rce(s) Supporting Document(s) Urine Culture Laboratory test result Normal (applies t o non-numeric results) [facility] ([facility]) FULL REPORT IN LAB NOTES (eCW and [facility] ). SPECIMEN APPEARS CONTAMINATED ID Date Data Source [id number] 03/06/2020 08:28:00 AM EDT [facility] ([facility]) Name Value Range Interpretation Code Description Data Risa rce(s) Supporting Document(s) Chlamydia Dna Amplification Laboratory test result Normal (applies to non- numeric results) [facility] ([facility]) A negative test result does not exclude the possibility of infection because test results may be affected by improper specimen collection, technical error, specimen mix-up, concurrent antibiotic therapy, or the number of organisms in the specimen which may be below the sensitivity of the test. GC Dna Amplification Laboratory test result Norm al (applies to non-numeric results) [facility] ([facility]) A negative test result does not exclude the possibility of infection because test results may be affected by improper specimen collection, technical error, specimen mix-up, concurrent antibiotic therapy, or the number of organisms in the specimen which may be below the sensitivity of the test. ID Date Data Source [id number] 10/17/2019 09:02:00 AM EST [facility] ([facility]) Name Value Range Interpretation Code Description Data Risa rce(s) Supporting Document(s) Inhouse Rapid Strep Laboratory test result [facility] ([facility]) Procedure Social History Code Duration Value Status Description Data Source(s ) Smoking 09/08/2020 12:00:00 AM EST Never Smoker completed Never S moker eCW1 (Replaced By [facility]) Smoking 09/01/2020 12:00:00 AM EST Never Smoker completed Never S moker eCW1 (Replaced By [facility]) Smoking 08/22/2020 12:00:00 AM EST Never Smoker completed Never S moker eCW1 (Replaced By [facility]) Smoking 08/19/2020 12:00:00 AM EST Never Smoker completed Never S moker eCW1 (Replaced By [facility]) Smoking 08/05/2020 12:00:00 AM EST Never Smoker completed Never S moker eCW1 (Replaced By [facility]) Smoking 08/05/2020 12:00:00 AM EST Never Smoker completed Never S moker eCW1 (Replaced By [facility]) Smoking 07/21/2020 12:00:00 AM EST Never Smoker completed Never S moker eCW1 (Replaced By [facility]) Smoking 06/25/2020 12:00:00 AM EDT Never Smoker completed Never S moker eCW1 (Replaced By [facility]) Smoking 06/25/2020 12:00:00 AM EDT Never Smoker completed Never S moker eCW1 (Replaced By [facility]) Smoking 03/05/2020 12:00:00 AM EDT Never Smoker completed Never S moker eCW1 (Replaced By [facility]) Smoking 03/05/2020 12:00:00 AM EDT Never Smoker completed Never S moker eCW1 (Replaced By [facility]) Smoking 03/05/2020 12:00:00 AM EDT Never Smoker completed Never S moker eCW1 (Replaced By [facility]) Smoking 10/15/2019 12:00:00 AM EST Patient is a former smoker completed Patient is a former smoker [facility] ([facility]) Vital Signs ID Date Data Source UNK Name Value Range Interpretation Code Description Data Source(s) Diastolic blood pressure 82 mm[Hg] 82 mm[Hg] W1 (Replaced By [facility]) Systolic blood pressure 130 mm[Hg] 130 mm[Hg] e CW1 (Replaced By [facility]) Body mass index (BMI) [Ratio] 51.364 kg/m2 51.3 64 kg/m2 [facility] (Replaced By [facility]) Body height 60 [in_i] 60 [in_i] [facility] ([facility]) Body weight 263 [lb_av] 263 [lb_av] W1 ([facility]) Body weight 250.00 [lb_av] 250.00 [lb_av] [facility] T ([facility]) Body temperature 98.7 [degF] 98.7 [degF] [facility] ([facility]) Oxygen saturation in Arterial blood by Pulse oximetry 95 % 95 % [facility] ([facility]) Respiratory rate 16 /min 16 /min [facility] ( [facility]) Heart rate 97 /min 97 /min [facility] ([facility], [facility]) Diastolic blood pressure 74 mm[Hg] 74 mm[Hg] [facility] ([facility]) Systolic blood pressure 108 mm[Hg] 108 mm[Hg] M EDENT ([facility], [facility]) Diastolic blood pressure 82 mm[Hg] 82 mm[Hg] eCW1 (Replaced By [facility]) Systolic blood pressure 120 mm[Hg] 120 mm[Hg] e CW1 (Replaced By [facility]) Body mass index (BMI) [Ratio] 51.403 kg/m2 51.4 03 kg/m2 W1 (Replaced By [facility]) Body height 60 [in_i] 60 [in_i] eCW1 ([facility]) Body weight 119.39 kg 119.39 kg W1 ([facility]) Body weight 263.2 [lb_av] 263.2 [lb_av] eCW1 ([facility]) Diastolic blood pressure 70 mm[Hg] 70 mm[Hg] eCW1 (Replaced By [facility]) Systolic blood pressure 104 mm[Hg] 104 mm[Hg] e CW1 (Replaced By [facility]) Body mass index (BMI) [Ratio] 50.582 kg/m2 50.5 82 kg/m2 W1 (Replaced By [facility]) Body height 60 [in_i] 60 [in_i] eCW1 ([facility]) Body weight 259 [lb_av] 259 [lb_av] eCW1 ([facility]) Diastolic blood pressure 74 mm[Hg] 74 mm[Hg] eCW1 (Replaced By [facility]) Systolic blood pressure 124 mm[Hg] 124 mm[Hg] e CW1 (Replaced By [facility]) Body mass index (BMI) [Ratio] 0.051 kg/m2 0.051 kg/m2 eCW1 (Replaced By [facility]) Body height 60 [in_i] 60 [in_i] eCW1 ([facility]) Body weight [lb_av] eCW1 ([facility]) Diastolic blood pressure 62 mm[Hg] 62 mm[Hg] eCW1 (Replaced By [facility]) Systolic blood pressure 110 mm[Hg] 110 mm[Hg] e CW1 (Replaced By [facility]) Body mass index (BMI) [Ratio] 49.801 kg/m2 49.8 01 kg/m2 eCW1 (Replaced By [facility]) Body height 60 [in_i] 60 [in_i] eCW1 ([facility]) Body weight 255 [lb_av] 255 [lb_av] eCW1 ([facility]) Diastolic blood pressure 72 mm[Hg] 72 mm[Hg] eCW1 (Replaced By [facility]) Systolic blood pressure 118 mm[Hg] 118 mm[Hg] e CW1 (Replaced By [facility]) Body mass index (BMI) [Ratio] 50.387 kg/m2 50.3 87 kg/m2 eCW1 (Replaced By [facility]) Body height 60 [in_i] 60 [in_i] eCW1 ([facility]) Body weight 258 [lb_av] 258 [lb_av] eCW1 ([facility]) Diastolic blood pressure 80 mm[Hg] 80 mm[Hg] eCW1 (Replaced By [facility]) Systolic blood pressure 100 mm[Hg] 100 mm[Hg] e CW1 (Replaced By [facility]) Body mass index (BMI) [Ratio] 49.528 kg/m2 49.5 28 kg/m2 W1 (Replaced By [facility]) Body height 60 [in_i] 60 [in_i] eCW1 ([facility]ly [facility]) Body weight 115.03 kg 115.03 kg eCW1 ([facility]) Body weight 253.6 [lb_av] 253.6 [lb_av] eCW1 ([facility]) Diastolic blood pressure 76 mm[Hg] 76 mm[Hg] eCW1 (Replaced By [facility]) Systolic blood pressure 120 mm[Hg] 120 mm[Hg] e CW1 (Replaced By [facility]) Body mass index (BMI) [Ratio] 46.442 kg/m2 46.4 42 kg/m2 eCW1 (Replaced By [facility]) Body height 60 [in_i] 60 [in_i] eCW1 ([facility]ly [facility]) Body weight 237.8 [lb_av] 237.8 [lb_av] eCW1 ([facility]) [place] body weight 100 [lb_av] 100 [lb_av] MEDEN T ([facility]) Oxygen saturation in Arterial blood by Pulse oximetry 98 % 98 % MEDENT ([facility]) Body temperature 98.7 [degF] 98.7 [degF] MEDENT ([facility]) Respiratory rate 18 /min 18 /min MEDENT ( [facility]) Heart rate 81 /min 81 /min MEDENT ([facility]) Body mass index (BMI) [Ratio] 45.3 kg/m2 45.3 k g/m2 MEDENT ([facility]) Body weight 239.25 [lb_av] 239.25 [lb_av] MEDEN T ([facility]) Body height 60.9 [in_i] 60.9 [in_i] MEDENT ([facility]) 5'0.90" Diastolic blood pressure 78 mm[Hg] 78 mm[Hg] MEDENT ([facility]) Systolic blood pressure 128 mm[Hg] 128 mm[Hg] M EDENT ([facility]) Diastolic blood pressure 82 mm[Hg] 82 mm[Hg] eCW1 (Replaced By [facility]) Systolic blood pressure 118 mm[Hg] 118 mm[Hg] e CW1 (Replaced By [facility]) Body mass index (BMI) [Ratio] 46.091 kg/m2 46.0 91 kg/m2 W1 (Replaced By [facility]) Body height 60 [in_i] 60 [in_i] eCW1 ([facility]) Body weight 236 [lb_av] 236 [lb_av] eCW1 ([facility]) [place] body weight 100 [lb_av] 100 [lb_av] MEDEN T ([facility]) Oxygen saturation in Arterial blood by Pulse oximetry 99 % 99 % [facility]) Body temperature 98.9 [degF] 98.9 [degF] MEDENT ([facility]) Respiratory rate 18 /min 18 /min MEDENT ( [facility]) Heart rate 99 /min 99 /min MEDENT ([facility]) Body mass index (BMI) [Ratio] 44.6 kg/m2 44.6 k g/m2 MEDENT ([facility]) Body weight 235.50 [lb_av] 235.50 [lb_av] MEDEN T ([facility]) Body height 60.9 [in_i] 60.9 [in_i] MEDENT ([facility]) 5'0.90" Diastolic blood pressure 70 mm[Hg] 70 mm[Hg] MEDENT ([facility]) Systolic blood pressure 122 mm[Hg] 122 mm[Hg] M EDENT ([facility]) Heart rate 94 /min 94 /min [facility]) Body mass index (BMI) [Ratio] 43.6 kg/m2 43.6 k g/m2 [facility] ([facility]) Body weight 230.00 [lb_av] 230.00 [lb_av] MEDEN T ([facility]) Body height 60.9 [in_i] 60.9 [in_i] MEDENT ([facility]) 5'0.90" Diastolic blood pressure 78 mm[Hg] 78 mm[Hg] MEDENT ([facility]) Systolic blood pressure 124 mm[Hg] 124 mm[Hg] M EDENT ([facility]) Oxygen saturation in Arterial blood by Pulse oximetry 98 % 98 % [facility] ([facility]) Body temperature 99.8 [degF] 99.8 [degF] MEDENT ([facility]) Respiratory rate 20 /min 20 /min MEDENT ( [facility]) Oxygen saturation in Arterial blood by Pulse oximetry 98 % 98 % [facility] ([facility]) Body temperature 99.2 [degF] 99.2 [degF] MEDENT ([facility]) Respiratory rate 18 /min 18 /min MEDENT ( [facility]) Heart rate 113 /min 113 /min MEDENT ([facility]) Body mass index (BMI) [Ratio] 43.6 kg/m2 43.6 k g/m2 MEDENT ([facility]) Body weight 230.12 [lb_av] 230.12 [lb_av] MEDEN T ([facility]) Body height 60.9 [in_i] 60.9 [in_i] MEDENT ([facility]) 5'0.90" Diastolic blood pressure 68 mm[Hg] 68 mm[Hg] MEDENT ([facility]) Systolic blood pressure 124 mm[Hg] 124 mm[Hg] M EDENT ([facility]) Body mass index (BMI) [Ratio] 43.0 kg/m2 43.0 k g/m2 MEDENT ([facility]) Body height 60 [in_i] 60 [in_i] MEDENT ([facility]) 5'0" Body weight 220.00 [lb_av] 220.00 [lb_av] MEDEN T ([facility], [facility]) Body temperature 100.6 [degF] 100.6 [degF] MEDE NT ([facility], [facility]) Oxygen saturation in Arterial blood by Pulse oximetry 97 % 97 % MEDENT ([facility], [facility]) Respiratory rate 12 /min 12 /min MEDENT ( [facility], [facility]) Heart rate 101 /min 101 /min MEDENT ([facility], [facility]) Diastolic blood pressure 96 mm[Hg] 96 mm[Hg] MEDENT ([facility], [facility]) Systolic blood pressure 135 mm[Hg] 135 mm[Hg] [facility]) Oxygen saturation in Arterial blood by Pulse oximetry 99 % 99 % MEDENT ([facility]) Body temperature 97.1 [degF] 97.1 [degF] MEDENT ([facility]) Respiratory rate 16 /min 16 /min MEDENT ( [facility]) Heart rate 75 /min 75 /min [facility] ([facility]) Body mass index (BMI) [Ratio] 44.0 kg/m2 44.0 k g/m2 [facility] ([facility]) Body weight 232.38 [lb_av] 232.38 [lb_av] LENORAEN T ([facility]) Body height 60.9 [in_i] 60.9 [in_i] [facility] 5'0.90" Diastolic blood pressure 68 mm[Hg] 68 mm[Hg] ASCENCION ([facility]) Systolic blood pressure 118 mm[Hg] 118 mm[Hg] M LEELEE ([facility]) Patient Treatment Plan of Care Planned Activity Planned Date Details Description Data Source (s) Famotidine 40 MG Oral Tablet [Pepcid] 02/11/2020 12:00:00 AM EDT eCW1 (Replaced By [facility]) Famotidine 40 MG Oral Tablet [Pepcid] 02/11/2020 12:00:00 AM EDT eCW1 (Replaced By [facility])
--- OUTSIDE RECORDS SUMMARY | 2020-09-17 05:30 | CCD ---
Author Author [facility] Organization [facility] Address Unknown Phone Unavailable Care Team Providers Care Track Production Engineer Name Role Phone Yulia Ceballos Unavailable PROBLEMS Type Condition ICD9-CM Code QMB66-SL Code Onset Dates Condition S tatus SNOMED Code Notes Problem ADHD (attention deficit hyperactivity disorder) F9 0.9 Active 715769536 Problem Insomnia G47.00 Active 797051921 Problem Depression F32.9 Active 78025770 Problem Heartburn R12 Active 46039893 Problem Supervision of other normal Z34.80 Ac tive 692059437 Problem Binge eating disorder F50.8 Active 364987730 Problem Obesity, unspecified obesity severity, unspecified obe sity type E66.9 Active 127496952 Problem Tension-type headache, not intractable, unspecified chronicity pattern G44.209 Active 015474340 Problem Moderately severe depression F32.2 Active 450 866760 ALLERGIES No Known Allergies ENCOUNTERS from 1983 to 2020-06-20 Encounter Location Date Provider Diagnosis [facility] [address] [place] [id number] Jun, Yulia Ceballos Second trimester Z34.92 IMMUNIZATIONS Vaccine Route Administration Date Status IPV [...] Unknown Language: Question Answer Notes Languages spoken: Eritrean Congregational: Question Answer Notes Congregational 21 Yazdanism Tobacco Use: Question Answer Notes Are you a: never smoker REASON FOR REFERRAL No Information VITAL SIGNS No information MEDICATIONS Medication SIG (Take, Route, Frequency, Duration) Start Date En d Date Status Vyvanse 70 MG 1 capsule in the morning Orally Once a d ay for 30 day(s) Jul, Not-Taking Pepcid 40 MG 1 tablet at bedtime Orally Once a day for 30 day(s) Feb, Active Topamax 100 MG 1 tablet Orally Twice a day Not-Taking Amoxicillin 875 MG 1 tablet Orally every 12 hrs for 10 day(s) 17 2016 Not-Taking Clotrimazole 1 % 1 application to affected ar ea Externally Twice a day for 30 day(s) Not-Taking Eszopiclone 1 mg 1 tablet immediately before bedtime Orally Once a day for 30 day(s) Jun, Not-Taking Fluoxetine 10 MG 1 capsule in the morning Orally Once a day for 30 day(s) Not-Taking Jobst Active 15-20mmHg Medium - as directed _varicose veins Daily for 30 day(s) Not-Taking Vitamin 27-0.8 MG 1 tablet Orally Once a day Active PROCEDURES No Information RESULTS No Results REASON FOR VISIT 3hr glucose order MEDICAL (GENERAL) HISTORY Type Description Date Medical History Depression Medical History ADHD since childhood Medical History Eczema (carroll. leg) Medical History Dry eye (Followed by [facility]) Surgical History tonsillectomy as child Surgical History Teague tooth extraction Surgical History C section Hospitalization History related to surgery Hospitalization History Depression 2011 Goals Section No Information Health Concerns No Information MEDICAL EQUIPMENT No Information MENTAL STATUS No Information FUNCTIONAL STATUS No Information ASSESSMENTS Encounter Date Diagnosis Notes Jun, Second trimester (ICD-10 - Z34 .92) PLAN OF TREATMENT Treatment Notes Test Name Order Date GLUCOSE ALEJANDRA 3 HR GESTATIONAL 2020-06-20 Next Appt Details Provider Name:Rafia Pierre, 2020-06 09:20:00 AM, [address] [place] [address], [phone], Provider Name:Vinicius Baum, 01:00:00 PM, [address] [place] [address], [phone], Insurance Providers Payer Name Payer Address Payer Phone Insured Name Patient Relati onship to Insured Coverage Start Date Coverage End Date [employer] [place] [employer] PPO [phone] [facility] [employer] [facility] [id number] [address]
[2020-09-17] MEDS ORDERED: LR 1,000 ML IV SCH ×2 (06:00→10:00)
[2020-09-17] MEDS ORDERED: BICITRA 30ML SOLN UDC PO ONE (06:00)
[2020-09-17] MEDS ORDERED: ceFAZolin SOD 1 GM in D5W MINI-BAG PLUS 50 ML IV ONE (06:00)
[2020-09-17] MEDS ORDERED: LR 1,000 ML IV ONE (06:00)
[2020-09-17] MEDS ORDERED: ceFAZolin SOD 2 GM in IV 1 EA IV ONE (06:00)
[2020-09-17 06:43] LABS: HEMATOCRIT 35.9 % (36.0-47.0); HEMOGLOBIN 11.3 g/dl (12.0-15.5); MEAN CORPUSCULAR HEMOGLOBIN 26.7 pg (27.0-33.0); MEAN CORPUSCULAR HGB CONC 31.5 g/dl (32.0-36.5); MEAN CORPUSCULAR VOLUME 84.7 fl (80.0-96.0); PLATELET COUNT, AUTOMATED 237 10^3/uL (150-450); RED BLOOD COUNT 4.24 10^6/uL (4.00-5.40); WHITE BLOOD COUNT 11.5 10^3/uL (4.0-10.0)
[2020-09-17] MEDS ORDERED: OXYTOCIN INJ 10 UNITS/ML VIAL (J2590) As Ordered ONE ×3 (07:21→09:11)
[2020-09-17] MEDS ORDERED: MORPHINE PRES-FREE INJ 10 MG/10 ML VIAL (J2274) As Ordered ONE (07:21)
[2020-09-17] MEDS ORDERED: fentaNYL 100 MCG/2 ML INJECTION (J3010) As Ordered ONE (07:44)
[2020-09-17] MEDS ORDERED: ePHEDrine SULFATE 25 MG/5 ML(5MG/ML) SYRINGE As Ordered ONE ×3 (08:25→08:52)
[2020-09-17] MEDS ORDERED: PHENYLephrine 500MCG 5ML (100MCG/ML) SYRINGE As Ordered ONE ×4 (08:25→08:52)
[2020-09-17] MEDS ORDERED: dexameTHASONE 4 MG/ML 1ML VIAL (J1100 PER 1MG) As Ordered ONE (08:33)
[2020-09-17] MEDS ORDERED: METOCLOPRAMIDE INJ 10MG/2ML VIAL (J2765 PER 1) As Ordered ONE (08:34)
[2020-09-17] MEDS: DOCUSATE SODIUM 100MG CAPSULE PO SCH ×2 (09:00→20:25)
[2020-09-17] MEDS: PRENATAL VITAMINS CHEWABLE TABLET PO SCH (09:00)
[2020-09-17] MEDS ORDERED: VASOPRESSIN INJ 20 UNITS/ML VIAL As Ordered ONE (09:23)
[2020-09-17] MEDS ORDERED: OXYTOCIN DRIP 30 UNITS in IV 1 EA IV SCH (09:29)
[2020-09-17] MEDS ORDERED: KETOROLAC 60MG 2ML VIAL As Ordered ONE (09:29)
[2020-09-17] MEDS ORDERED: PERCOCET 5MG/325MG TAB PO PRN ×2 (09:30→10:00)
[2020-09-17] MEDS ORDERED: RHOGAM 300 MCG (1500 IU) INJ (J2790) IM SCH (09:30)
[2020-09-17] MEDS ORDERED: MEASLES,MUMPS,RUBELLA VACCINE INJ (MMR-II) (90707) SC SCH (09:30)
[2020-09-17] MEDS ORDERED: ACETAMINOPHEN 500 MG TAB PO PRN (09:30)
[2020-09-17] MEDS ORDERED: METHYLERGONOVINE MALEATE 0.2 MG TAB PO PRN (09:30)
[2020-09-17] MEDS ORDERED: ONDANSETRON 4MG/2ML VIAL IV PRN ×3 (09:30→10:00)
[2020-09-17] MEDS ORDERED: ACETAMINOPHEN 1000MG 100ML IV BTL (OFIRMEV) (J0131 PER 10MG) As Ordered ONE (09:36)
--- NOTE | 2020-09-17 09:39 | ROOPDOC ---
[facility] Report Of Operation Report of Operation DATE OF PROCEDURE: 09/17/20 PREPROCEDURE DIAGNOSES: 39+ weeks gestation, history of prior low transverse section, satisfied parity, COVID+, obesity POSTPROCEDURE DIAGNOSES: same PROCEDURE: Repeat low transverse section with Ammon bilateral tubal ligation. SURGEON: Vinicius Baum DO FACOG SURGICAL INSTRUMENT TECHNICIAN: Josh Lagunas CNM (Essential role in retraction, extraction, and closure of all tissue layers) ANESTHESIA: Spinal with Duramorph ESTIMATED BLOOD LOSS: 600 mL. IV FLUIDS: 2300 mL LR URINE OUTPUT: 50 mL COMPLICATIONS: None. FINDINGS: Normal uterus and bilateral fallopian tubes/ovaries. PREOPERATIVE ANTIBIOTICS: Ancef 3g IV x 1. DATA: Apgars 8 and 9. Birthweight 4260g, 9lbs 6oz. Male . SPECIMENS: right and left fallopian tubal segments. PRIMARY INDICATION FOR : History of prior low transverse section. DESCRIPTION OF PROCEDURE: The patient was counseled on the risks, benefits, indications and alternatives of the procedure. Informed consent was obtained. She was taken to the operating room with IV running and placed on the operating table in the dorsal supine position with a leftward tilt. Regional anesthesia was found to be adequate. Sequential compression devices were placed on the lower extremities. A Schmitt catheter was placed under sterile conditions. She was prepared and draped in normal sterile fashion. A time out was performed per protocol. Regional anesthesia was again found to be adequate. A Pfannenstiel skin incision was made with the 10 blade. The 10 blade was used to dissect down to the level of the rectus sheath fascia. The rectus sheath pressure was incised midline and this was extended bilaterally with Al sci ssors , and manual stretch. The rectus muscle bellies were dissected off the rectus sheath fascia superiorly and inferiorly using both sharp and blunt dissection. The midline was identified. The peritoneum was identified and the cavity entered. The peritoneal opening was extended with manual stretch. The Mobius retractor was placed. The vesicouterine peritoneum was dissected with Metzenbaum scissors to create the bladder flap. A low transverse uterine incision was made with the 10 blade. This was extended with manual stretch. The amniotic sac was punctured, and clear fluid was noted. The baby delivered through the hysterotomy without difficulty. The cord was doubly clamped and cut, and the baby was handed off to awaiting care. data shown above. The placenta was removed manually. The intrauterine cavity was cleared of all clot and debris. The hysterotomy was closed with 0 Vicryl in running locked fashion. This was reinforced with a second imbricating layer using 0 Vicryl in running fashion. Excellent hemostasis of the hysterotomy was noted. The right and left fallopian tubes were followed out to the fimbriated end. A ligation was performed on each fallopian tube using the following technique (Dwaine): The ampullary portion of each was grasped with a [place] and elevated. A peritoneal window was created with Bovie along the mesosalpinx. Plain gut suture was used to tie two locations of the fallopian tube at the ends of the created window. The approximate 2-3cm intervening segment of fallopian tube was excised with Metzenbaum scissors. Bovie cautery was used to obliterate the lumen of the fallopian tube on each cut end, and to ensure hemostasis. Excellent hemostasis was noted. The pelvis was irrigated and the fluid suctioned. The Mobius retractor was removed. The peritoneum was closed with 3-0 Vicryl running fashion. The rectus muscle bellies were reapproximated with interrupted stitches using 3-0 Vicryl. The rectus muscles bellies were hemostatic. The rectus sheath fascia was closed with 0 Vicryl running fashion. The subcutaneous layer was irrigated and the fluid suctioned. Small bleeding vessels were cauterized with Bovie. Excellent hemostasis was noted. The subcutaneous layer was reapproximated with 3-0 Vicryl running fashion. Skin was closed with 3-0 Monocryl in subcuticular fashion. An Optifoam bandage was placed over the closed incision. Sponge, needle and instrument counts were correct per protocol throughout the procedure. The patient tolerated the entire procedure very well. She was transferred to the PACU in stable condition. DO COLE Rodriguez JONATHAN R. DO Sep 17, 2020 09:39
[2020-09-17] MEDS ORDERED: METOCLOPRAMIDE INJ 10MG/2ML VIAL (J2765 PER 1) IV PRN ×2 (10:00)
[2020-09-17] MEDS ORDERED: NALOXONE INJ 0.4MG/1ML VIAL (J2310 PER 1MG) IV PRN ×2 (10:00)
[2020-09-17] MEDS ORDERED: OXYTOCIN 30 UNITS IN 0.9% NaCl 500ML IV BAG (J2590) As Ordered ONE (10:00)
[2020-09-17] MEDS ORDERED: NALBUPHINE HCL 10 MG/ML AMP (J2300) IV PRN (10:00)
[2020-09-17] MEDS ORDERED: fentaNYL 100 MCG/2 ML INJECTION (J3010) IV PRN (10:00)
[2020-09-17] MEDS: LR 1,000 ML IV SCH ×2 (10:35→16:57)
[2020-09-17] MEDS: diphenhydrAMINE 50MG/ML VIAL (J1200) IV PRN ×2 (12:49→22:29)
[2020-09-17] MEDS: KETOROLAC 30 MG/ML 1ML VIAL IV SCH ×2 (15:31→20:25)
[2020-09-17] MEDS ORDERED: IBUP80TA PO (16:02)
[2020-09-17] MEDS ORDERED: PERCOCET PO (16:02)
[2020-09-17] MEDS ORDERED: DOK1CAP7 PO (16:02)
[2020-09-17] MEDS: ENOXAPARIN 40MG/0.4ML SYRINGE (J1650 PER 10MG) SC SCH (21:00)
[2020-09-18] MEDS: LR 1,000 ML IV SCH (01:36)
[2020-09-18 02:00] VITALS: BP 101/57
[2020-09-18] MEDS: KETOROLAC 30 MG/ML 1ML VIAL IV SCH (03:03)
[2020-09-18] MEDS: PERCOCET 5MG/325MG TAB PO PRN ×3 (05:06→17:30)
[2020-09-18 06:00] VITALS: BP 111/58
[2020-09-18 06:41] LABS: HEMATOCRIT 28.2 % (36.0-47.0); MEAN CORPUSCULAR HEMOGLOBIN 27.9 pg (27.0-33.0); MEAN CORPUSCULAR HGB CONC 31.6 g/dl (32.0-36.5); MEAN CORPUSCULAR VOLUME 88.4 fl (80.0-96.0); PLATELET COUNT, AUTOMATED 191 10^3/uL (150-450); RED BLOOD COUNT 3.19 10^6/uL (4.00-5.40); WHITE BLOOD COUNT 15.1 10^3/uL (4.0-10.0)
[2020-09-18 06:52] LABS: HEMOGLOBIN 8.9 g/dl (12.0-15.5)
[2020-09-18] MEDS: PRENATAL VITAMINS CHEWABLE TABLET PO SCH (09:26)
[2020-09-18] MEDS: DOCUSATE SODIUM 100MG CAPSULE PO SCH ×2 (09:27→21:00)
[2020-09-18 10:30] VITALS: BP 127/69
[2020-09-18] MEDS: IBUPROFEN 800 MG TAB PO SCH ×2 (11:34→18:25)
[2020-09-18 14:04] VITALS: BP 105/59
[2020-09-18] MEDS ORDERED: guaiFENesin SYRUP 200 MG/10 ML UDC PO PRN (17:00)
[2020-09-18 18:26] VITALS: BP 110/58
[2020-09-18] MEDS ORDERED: MORPHINE 2 MG/ML 1ML VIAL (J2270) IV ONE (19:00)
[2020-09-18] MEDS: ENOXAPARIN 40MG/0.4ML SYRINGE (J1650 PER 10MG) SC SCH (20:52)
[2020-09-18] MEDS: BENZONATATE 100 MG CAP PO SCH (21:00)
[2020-09-18 23:06] VITALS: BP 108/60
[2020-09-19] MEDS: PERCOCET 5MG/325MG TAB PO PRN ×2 (01:39→08:12)
[2020-09-19 01:58] VITALS: BP 115/57
[2020-09-19] MEDS: IBUPROFEN 800 MG TAB PO SCH ×2 (04:50→11:00)
--- NOTE | 2020-09-19 05:57 | IPNPDOC ---
Progress Note Date of Service: Sep 19, 2020 Day#: 2 Progress Note POD 2/PPD 2 SUBJECT: Felecia is a 35yo s/p uncomplicated RLTCS on 09/17, doing well post- op/ day # 2. She has recently resolved Covid, had minimal sx. PMhx significant for BMI > 50. She has been ambulating, voiding spontaneously without issue and tolerating regular diet. Breast feeding without issue. Reports lochia is like a normal period. Patient is ambulating well. Pain now well controlled. No fevers/chills/nausea/vomiting/chest pain/shortness of breath. OBJECTIVE: VITAL SIGNS: Within normal limits, afebrile. Alert and oriented times three. Abdomen: Fundus firm at U-2. Soft, appropriately tender to palpation. Pfannenstiel incision is covered by dry optifoam dressing, no obvious erythema of surrounding tissue Extremities: no pain with palpation of calves Labs: pre-op H/H: 11.3/35.9, plt 237 post-op H/H 8.9/28.2, plt 191 ASSESSMENT: Felecia is a 35yo s/p uncomplicated RLTCS on 09/17, doing well post-op/ day # 2. Vitals within normal limits, afebrile, hemodynamically stable with no evidence of infection. PLAN: 1. Discharge to home today. 2. Percocet and Motrin for pain. 3. Encourage breast feeding and ambulation and use of IS 4. Routine visit at 2 weeks for incision check 5. Discussed return precautions at length. 6. Keep incision clean and dry 7. No heavy lifting, vaginal rest 6 weeks Rafia Pierre MD VS, I&O, 24H, [facility] Vital Signs/I&O Vital Signs Date Time Temp Pulse Resp B/P (MAP) Pulse Ox O2 Delivery O2 Flow Rate FiO2 09/19/20 01:58 98.4 85 18 115/57 (76) 98 Room Air I&O- Last 24 Hours up to 6 AM 09/19/20 06:00 Output Total 425 ml Balance -425 ml Laboratory Data 24H LABS Laboratory Tests 2 09/18/20 06:03: Nucleated Red Blood Cells % (auto) 0.0 CBC/BMP Laboratory Tests 09/18/20 06:03 Rafia Pierre MD Sep 19, 2020 05:57
--- NOTE | 2020-09-19 06:01 | DS.PDOC ---
Discharge Summary General Date of Admission Sep 17, 2020 at 05:26 Date of Discharge Sep 19, 2020 Discharge Summary PROCEDURES PERFORMED DURING STAY: repeat low transverse section ADMITTING DIAGNOSES: 1. Term gestation, history prior section, obesity, recent mild Covid- resolved DISCHARGE DIAGNOSES: 1. Term gestation, history prior section, obesity, recent mild Covid- resolved COMPLICATIONS/CHIEF COMPLAINT: Previous Satisfied Fertility. HISTORY OF PRESENT ILLNESS/HOSPITAL COURSE: Felecia is a 35yo s/p uncomplicated RLTCS on 09/17, doing well post-op/ day # 2. She had a benign post-op course and at time of discharge, vitals were within normal limits, afebrile, hemodynamically stable with no evidence of infection. DISCHARGE MEDICATIONS: Please see below. ALLERGIES: Please see below. PHYSICAL EXAMINATION ON DISCHARGE: VITAL SIGNS: Within normal limits, afebrile. Alert and oriented times three. Abdomen: Fundus firm at U-2. Soft, appropriately tender to palpation. Pfannenstiel incision is covered by dry optifoam dressing, no obvious erythema of surrounding tissue Extremities: no pain with palpation of calves LABORATORY DATA: Please see below. pre-op H/H: 11.3/35.9, plt 237 post-op H/H 8.9/28.2, plt 191 DIET: regular DISPOSITION: home DISCHARGE PLAN/INSTRUCTIONS: 1. Discharge to home today. 2. Percocet and Motrin for pain. 3. Encourage breast feeding and ambulation and use of IS 4. Routine visit at 2 weeks for incision check 5. Discussed return precautions at length. 6. Keep incision clean and dry 7. No heavy lifting, vaginal rest 6 weeks DISCHARGE CONDITION: Stable TIME SPENT ON DISCHARGE: Greater than 20 minutes. Vital Signs/I&Os Vital Signs Date Time Temp Pulse Resp B/P (MAP) Pulse Ox O2 Delivery O2 Flow Rate FiO2 09/19/20 01:58 98.4 85 18 115/57 (76) 98 Room Air I&O- Last 24 Hours up to 6 AM 09/19/20 06:00 Output Total 425 ml Balance -425 ml Laboratory Data Labs 24H Laboratory Tests 2 09/18/20 06:03: Nucleated Red Blood Cells % (auto) 0.0 CBC/BMP Laboratory Tests 09/18/20 06:03 Discharge Medications Scheduled Docusate Sodium (Dok) 100 Mg Capsule, 100 MG PO BID Ibuprofen (Ibuprofen) 800 Mg Tablet, 800 MG PO Q8H No.137/Iron/Folic Acd ( Vitamin Tablet) 1 Tab Tab, 1 TAB PO DAILY, (Reported) Scheduled PRN Oxycodone/Acetaminophen (Oxycodone-Acetaminophen 5-325) 1 Each Tablet, 1 TAB PO Q4H PRN for MILD/MODERATE PAIN (PS 1-7) Allergies Coded Allergies: No Known Allergies (Unverified , 09/17/20) Rafia Pierre MD Sep 19, 2020 06:01
[2020-09-19 06:05] VITALS: BP 111/61
[2020-09-19] MEDS: DOCUSATE SODIUM 100MG CAPSULE PO SCH (08:11)
[2020-09-19] MEDS: BENZONATATE 100 MG CAP PO SCH (08:11)
[2020-09-19] MEDS: PRENATAL VITAMINS CHEWABLE TABLET PO SCH (08:11)
[2020-09-19 08:34] LABS: CREATININE FOR GFR 0.66 MG/DL (0.55-1.30); GLOMERULAR FILTRATION RATE > 60.0 (>60)
[2020-09-19 10:00] VITALS: BP 128/69
== END 2020-09-19 12:00 | disposition home or self-care (01) | DRG 540 ==
LOC: M LDI 09-17 05:26 → M OBS 09-17 11:06
PROVIDERS: ADMIT Obstetrics & Gynecology; ATTEND Obstetrics & Gynecology
PROC: 0UL70ZZ Occlusion of Bilateral Fallopian Tubes, Open Approach (ICD-10-PCS; 2020-09-17)
PROC: 10D00Z1 Extraction of Products of Conception, Low, Open Approach (ICD-10-PCS; principal; 2020-09-17 07:30)
DX: O34.211 Maternal care for low transverse scar from previous cesarean delivery (principal); Z3A.39 39 weeks gestation of pregnancy; Z37.0 Single live birth; O99.214 Obesity complicating childbirth; E66.9 Obesity, unspecified; Z30.2 Encounter for sterilization; Z86.16 Personal history of COVID-19

== ENCOUNTER → 2020-09-16 | Outpatient (CLI) | payer BC ==
[~2020-09-16] MED LIST changes: +DOK1CAP7 PO
== END ==
LOC: M LABSMTC 09:37
PROVIDERS: ATTEND Anesthesiology
DX: Z20.828 Contact with and (suspected) exposure to other viral communicable diseases (principal)

== ENCOUNTER → 2020-09-29 | Outpatient (REF) | payer BC ==
[2020-09-29 16:08] LABS: HEMATOCRIT 34.4 % (36.0-47.0); HEMOGLOBIN 10.7 g/dl (12.0-15.5); MEAN CORPUSCULAR HEMOGLOBIN 27.3 pg (27.0-33.0); MEAN CORPUSCULAR HGB CONC 31.1 g/dl (32.0-36.5); MEAN CORPUSCULAR VOLUME 87.8 fl (80.0-96.0); PLATELET COUNT, AUTOMATED 363 10^3/uL (150-450); RED BLOOD COUNT 3.92 10^6/uL (4.00-5.40); WHITE BLOOD COUNT 10.8 10^3/uL (4.0-10.0)
[2020-09-29 16:25] LABS: ALBUMIN 2.8 GM/DL (3.2-5.2); ALT/SGPT 24 U/L (12-78); BILIRUBIN,TOTAL 0.2 MG/DL (0.2-1.0); BLOOD UREA NITROGEN 27 MG/DL (7-18); CALCIUM LEVEL 9.1 MG/DL (8.5-10.1); CARBON DIOXIDE LEVEL 29 MEQ/L (21-32); CHLORIDE LEVEL 105 MEQ/L (98-107); CREATININE FOR GFR 1.08 MG/DL (0.55-1.30); GLOMERULAR FILTRATION RATE > 60.0 (>60); GLUCOSE, FASTING 87 MG/DL (70-100); POTASSIUM SERUM 4.2 MEQ/L (3.5-5.1); SODIUM LEVEL 143 MEQ/L (136-145); TOTAL PROTEIN 6.5 GM/DL (6.4-8.2)
== END ==
LOC: M PLALAB 13:46
PROVIDERS: ATTEND Obstetrics & Gynecology
DX: O12.05 Gestational edema, complicating the puerperium (principal)

== ENCOUNTER → 2021-01-27 | Outpatient (CLI) | payer BC ==
[2021-01-27 08:53] LABS: BASO % 0.5 % (0.0-1.0); EOS # 0.2 10^3/uL (0.0-0.5); EOS % 2.3 % (0.0-3.0); HEMATOCRIT 44.5 % (36.0-47.0); LYMPH # 1.9 10^3/uL (1.5-5.0); LYMPH % 29.6 % (24.0-44.0); MEAN CORPUSCULAR HEMOGLOBIN 27.3 pg (27.0-33.0); MEAN CORPUSCULAR HGB CONC 31.5 g/dl (32.0-36.5); MEAN CORPUSCULAR VOLUME 86.9 fl (80.0-96.0); MONO # 0.5 10^3/uL (0.0-0.8); MONO % 7.8 % (2.0-8.0); NEUTROPHILS # 3.9 10^3/uL (1.5-8.5); NEUTROPHILS % 59.5 % (36.0-66.0); PLATELET COUNT, AUTOMATED 247 10^3/uL (150-450); RED BLOOD COUNT 5.12 10^6/uL (4.00-5.40); WHITE BLOOD COUNT 6.5 10^3/uL (4.0-10.0)
[2021-01-27 09:30] LABS: ALBUMIN 3.6 GM/DL (3.2-5.2); ALT/SGPT 21 U/L (12-78); BILIRUBIN,TOTAL 0.5 MG/DL (0.2-1.0); BLOOD UREA NITROGEN 16 MG/DL (7-18); CALCIUM LEVEL 9.2 MG/DL (8.5-10.1); CARBON DIOXIDE LEVEL 28 MEQ/L (21-32); CHLORIDE LEVEL 108 MEQ/L (98-107); CREATININE FOR GFR 0.64 MG/DL (0.55-1.30); FERRITIN 15 NG/ML (8-252); FREE T4 1.09 NG/DL (0.76-1.46); GLOMERULAR FILTRATION RATE > 60.0 (>60); GLUCOSE, FASTING 82 MG/DL (70-100); IRON (FE) 68 UG/DL (50-170); PERCENT SATURATION 18.9 % (13.2-45.0); POTASSIUM SERUM 4.8 MEQ/L (3.5-5.1); SODIUM LEVEL 140 MEQ/L (136-145); TOTAL IRON BINDING CAPACITY 359 UG/DL (250-450); TOTAL PROTEIN 7.2 GM/DL (6.4-8.2)
[2021-01-27 09:32] LABS: HEMOGLOBIN A1c 5.1 %; TOTAL 25(OH) VITAMIN D 29.6 NG/ML (30.0-100.0)
== END ==
LOC: M LAB 08:08
PROVIDERS: ATTEND Physician Assistant
DX: Z13.29 Encounter for screening for other suspected endocrine disorder (principal)

== ENCOUNTER → 2022-03-14 | Outpatient (CLI) | payer BC ==
[~2022-03-14] MED LIST changes: +DOK1CAP4 PO; -DOK1CAP7 PO
[2022-03-14 08:43] LABS: BASO % 0.6 % (0.0-1.0); EOS # 0.2 10^3/uL (0.0-0.5); EOS % 2.1 % (0.0-3.0); HEMATOCRIT 41.1 % (36.0-47.0); HEMOGLOBIN 13.2 g/dl (12.0-15.5); LYMPH # 1.9 10^3/uL (1.5-5.0); LYMPH % 27.5 % (24.0-44.0); MEAN CORPUSCULAR HEMOGLOBIN 29.7 pg (27.0-33.0); MEAN CORPUSCULAR HGB CONC 32.1 g/dl (32.0-36.5); MEAN CORPUSCULAR VOLUME 92.4 fl (80.0-96.0); MONO # 0.5 10^3/uL (0.0-0.8); MONO % 7.3 % (2.0-8.0); NEUTROPHILS # 4.3 10^3/uL (1.5-8.5); NEUTROPHILS % 62.2 % (36.0-66.0); PLATELET COUNT, AUTOMATED 264 10^3/uL (150-450); RED BLOOD COUNT 4.45 10^6/uL (4.00-5.40)
[2022-03-14 09:17] LABS: ALT/SGPT 15 U/L (12-78); BILIRUBIN,TOTAL 0.3 MG/DL (0.2-1.0); BLOOD UREA NITROGEN 14 MG/DL (7-18); CALCIUM LEVEL 8.9 MG/DL (8.5-10.1); CARBON DIOXIDE LEVEL 23 MEQ/L (21-32); CHLORIDE LEVEL 110 MEQ/L (98-107); CHOLESTEROL LEVEL 150 MG/DL (<200); CREATININE FOR GFR 0.69 MG/DL (0.55-1.30); GLOMERULAR FILTRATION RATE > 60.0 (>60); GLUCOSE, FASTING 81 MG/DL (70-100); HDL CHOLESTEROL 52 MG/DL (>40); POTASSIUM SERUM 4.4 MEQ/L (3.5-5.1); SODIUM LEVEL 139 MEQ/L (136-145); TRIGLYCERIDES LEVEL 41 MG/DL (<150)
[2022-03-14 09:18] LABS: ALBUMIN 3.6 GM/DL (3.2-5.2); CHOLESTEROL RISK RATIO 2.884 (<5); FREE T4 1.09 NG/DL (0.76-1.46); LDL CHOLESTEROL 90 MG/DL (<100); NON-HDL-C 98 MG/DL; THYROID STIMULATING HORMONE 0.968 uIU/ML (0.358-3.740); TOTAL PROTEIN 6.8 GM/DL (6.4-8.2)
[2022-03-14 10:28] LABS: HEMOGLOBIN A1c 4.5 %
[2022-03-15 13:01] LABS: TOTAL 25(OH) VITAMIN D 50.5 NG/ML (30.0-100.0)
== END ==
LOC: M LAB 08:20
PROVIDERS: ATTEND Physician Assistant
DX: Z13.29 Encounter for screening for other suspected endocrine disorder (principal)

== ENCOUNTER → 2022-06-22 | Outpatient (REF) | LOC: M LAB 10:20 | PROVIDERS: ATTEND Nurse Practitioner Adult Health | DX: Z02.1 Encounter for pre-employment examination (principal) ==

== ENCOUNTER 2022-09-11 20:15 | Emergency (ER) | payer BC ==
[~2022-09-11] VITALS: Ht 154.9 cm; Wt 89.9 kg
[2022-09-11 20:16] VITALS: BP 119/81
[2022-09-11] MEDS ORDERED: VYVA30CA4 PO (20:24)
[2022-09-11] MEDS ORDERED: SEMA2.4P SQ (20:24)
[2022-09-11] MEDS ORDERED: TRAZ1TAB10 PO (20:24)
[2022-09-11] MEDS ORDERED: KETOROLAC 30 MG/ML 1ML VIAL IV ONE (20:40)
[2022-09-11 21:01] LABS: BASO % 0.3 % (0.0-1.0); EOS # 0.2 10^3/uL (0.0-0.5); EOS % 1.9 % (0.0-3.0); HEMATOCRIT 38.7 % (36.0-47.0); HEMOGLOBIN 12.7 g/dl (12.0-15.5); LYMPH # 2.8 10^3/uL (1.5-5.0); LYMPH % 30.1 % (24.0-44.0); MEAN CORPUSCULAR HGB CONC 32.8 g/dl (32.0-36.5); MEAN CORPUSCULAR VOLUME 91.3 fl (80.0-96.0); MONO # 0.8 10^3/uL (0.0-0.8); NEUTROPHILS # 5.6 10^3/uL (1.5-8.5); NEUTROPHILS % 59.4 % (36.0-66.0); PLATELET COUNT, AUTOMATED 233 10^3/uL (150-450); RED BLOOD COUNT 4.24 10^6/uL (4.00-5.40); WHITE BLOOD COUNT 9.4 10^3/uL (4.0-10.0)
[2022-09-11 21:28] LABS: LIPASE 72 U/L (12-53)
[2022-09-11 21:30] LABS: BILIRUBIN,DIRECT < 0.1 MG/DL (<0.4)
[2022-09-11 21:31] LABS: ALBUMIN 3.4 G/DL (3.2-5.2); ALKALINE PHOSPHATASE 66 U/L (46-116); ALT/SGPT 13 U/L (7.0-40); AST/SGOT 18 U/L (<34); BILIRUBIN,TOTAL 0.2 MG/DL (0.3-1.2); BLOOD UREA NITROGEN 21 MG/DL (9-23); CALCIUM LEVEL 8.7 MG/DL (8.5-10.1); CARBON DIOXIDE LEVEL 28 MMOL/L (20-31); CHLORIDE LEVEL 107 MMOL/L (98-107); CREATININE FOR GFR 0.62 MG/DL (0.55-1.30); GLOMERULAR FILTRATION RATE > 60.0 (>60); GLUCOSE, FASTING 75 MG/DL (60-100); SODIUM LEVEL 140 MMOL/L (136-145); TOTAL PROTEIN 6.3 G/DL (5.7-8.2)
[2022-09-11] MEDS ORDERED: ISOVUE-370 76% 100ML VIAL As Ordered ONE (21:32)
== END 2022-09-11 23:07 | disposition home or self-care (01) ==
LOC: M ED 20:47
DX: R10.9 Unspecified abdominal pain (principal); F90.9 Attention-deficit hyperactivity disorder, unspecified type; F10.10 Alcohol abuse, uncomplicated; Z79.899 Other long term (current) drug therapy; Z79.83 Long term (current) use of bisphosphonates

== ENCOUNTER → 2022-09-23 | Outpatient (REF) ==
[~2022-09-23] MED LIST changes: +SEMA2.4P SQ; +TRAZ1TAB10 PO; +VYVA30CA4 PO
== END ==
LOC: M LABSMTC 09:27
PROVIDERS: ATTEND Family Medicine
DX: Z11.52 Encounter for screening for COVID-19 (principal)

== ENCOUNTER → 2022-12-16 | Outpatient (REF) | payer BC | LOC: M LAB REF 20:47 | PROVIDERS: ATTEND Physician Assistant | DX: R07.0 Pain in throat (principal) ==

== ENCOUNTER → 2023-01-03 | Outpatient (CLI) | payer BC | LOC: M WHC 07:06 | PROVIDERS: ATTEND Nurse Practitioner Family | DX: Z12.31 Encounter for screening mammogram for malignant neoplasm of breast (principal); R92.2 Inconclusive mammogram ==

== ENCOUNTER → 2023-01-06 | Outpatient (CLI) | payer BC | LOC: M WHC 07:48 | PROVIDERS: ATTEND Nurse Practitioner Family | DX: Z12.31 Encounter for screening mammogram for malignant neoplasm of breast (principal); N63.15 Unspecified lump in the right breast, overlapping quadrants; N63.25 Unspecified lump in the left breast, overlapping quadrants | CPT/HCPCS: 76642; 77066; G0279 ==

== ENCOUNTER → 2023-01-19 | Outpatient (CLI) | payer BC | LOC: M WHCPRO 12:44 | PROVIDERS: ATTEND Nurse Practitioner Women's Health | DX: R92.8 Other abnormal and inconclusive findings on diagnostic imaging of breast (principal) ==

== ENCOUNTER → 2023-02-15 | Outpatient (REF) | LOC: M EMP 08:15 | PROVIDERS: ATTEND Family Medicine | DX: Z20.822 Contact with and (suspected) exposure to COVID-19 (principal) ==

== ENCOUNTER → 2023-07-07 | Outpatient (CLI) | payer BC | LOC: M WHC 08:30 | PROVIDERS: ATTEND Nurse Practitioner Women's Health | DX: R92.8 Other abnormal and inconclusive findings on diagnostic imaging of breast (principal); R92.333 Mammographic heterogeneous density, bilateral breasts | CPT/HCPCS: 77066; G0279 ==

== ENCOUNTER → 2023-08-22 | Outpatient (CLI) | payer BC ==
[2023-08-22 18:46] LABS: BASO % 0.4 % (0.0-1.0); EOS # 0.1 10^3/uL (0.0-0.5); EOS % 1.1 % (0.0-3.0); HEMATOCRIT 43.2 % (36.0-47.0); HEMOGLOBIN 14.4 g/dl (12.0-15.5); LYMPH # 3.2 10^3/uL (1.5-5.0); MEAN CORPUSCULAR HEMOGLOBIN 30.3 pg (27.0-33.0); MEAN CORPUSCULAR HGB CONC 33.3 g/dl (32.0-36.5); MEAN CORPUSCULAR VOLUME 90.9 fl (80.0-96.0); MONO # 0.6 10^3/uL (0.0-0.8); MONO % 6.5 % (2.0-8.0); NEUTROPHILS # 4.6 10^3/uL (1.5-8.5); NEUTROPHILS % 53.5 % (36.0-66.0); PLATELET COUNT, AUTOMATED 283 10^3/uL (150-450); RED BLOOD COUNT 4.75 10^6/uL (4.00-5.40); WHITE BLOOD COUNT 8.5 10^3/uL (4.0-10.0)
[2023-08-22 18:54] LABS: HEMOGLOBIN A1c 4.5 % (4.0-6.0)
[2023-08-22 19:01] LABS: ALBUMIN 3.9 G/DL (3.2-5.2); ALKALINE PHOSPHATASE 65 U/L (46-116); ALT/SGPT 16 U/L (7.0-40); AST/SGOT 14 U/L (<34); BILIRUBIN,TOTAL 0.7 MG/DL (0.3-1.2); BLOOD UREA NITROGEN 13 MG/DL (9-23); CALCIUM LEVEL 9.3 MG/DL (8.5-10.1); CARBON DIOXIDE LEVEL 24 MMOL/L (20-31); CHLORIDE LEVEL 106 MMOL/L (98-107); CHOLESTEROL LEVEL 160 MG/DL (<200); CHOLESTEROL RISK RATIO 2.61 (<5); FREE T4 1.27 NG/DL (0.89-1.76); GLOMERULAR FILTRATION RATE > 60.0 (>58); GLUCOSE, FASTING 76 MG/DL (60-100); HDL CHOLESTEROL 61.1 MG/DL (>40); LDL CHOLESTEROL 90.3 MG/DL (<100); NON-HDL-C 98.9 MG/DL; SODIUM LEVEL 138 MMOL/L (136-145); THYROID STIMULATING HORMONE 1.386 uIU/ML (0.55-4.78); TOTAL PROTEIN 6.9 G/DL (5.7-8.2); TRIGLYCERIDES LEVEL 43 MG/DL (<150)
[2023-08-22 19:02] LABS: TOTAL 25(OH) VITAMIN D 29.6 NG/ML (20.0-100.0)
== END ==
LOC: M PLALAB 16:14
PROVIDERS: ATTEND Physician Assistant
DX: Z13.220 Encounter for screening for lipoid disorders (principal)

== ENCOUNTER → 2023-11-23 | Outpatient (REF) | payer BC | LOC: M SFHCWAGY 16:58 | PROVIDERS: ATTEND Nurse Practitioner Family | DX: N73.9 Female pelvic inflammatory disease, unspecified (principal) ==

== ENCOUNTER 2023-11-25 04:51 | Emergency (ER) | payer BC ==
[~2023-11-25] VITALS: Ht 154.9 cm; Wt 84.4 kg
[2023-11-25] MEDS ORDERED: CIPR500T39 (05:02)
[2023-11-25] MEDS ORDERED: CYMB1CAP5 PO (05:02)
[2023-11-25] MEDS ORDERED: PROB250C PO (05:02)
[2023-11-25] MEDS ORDERED: LISD60CA (05:02)
[2023-11-25] MEDS ORDERED: AMIT25TA19 PO (06:25)
[2023-11-25 07:13] VITALS: BP 123/81; TEMP 98.2; O2SAT 100
== END 2023-11-25 07:17 | disposition home or self-care (01) ==
LOC: M ED 04:51
DX: N30.10 Interstitial cystitis (chronic) without hematuria (principal); F32.A Depression, unspecified; F90.9 Attention-deficit hyperactivity disorder, unspecified type; Z79.899 Other long term (current) drug therapy

== ENCOUNTER → 2023-12-09 | Outpatient (REF) | payer BC ==
[~2023-12-09] MED LIST changes: +AMIT25TA19 PO; +CIPR500T39; +CYMB1CAP5 PO; +LISD60CA; +PROB250C PO
== END ==
LOC: M SFHCWAGY 12:16
PROVIDERS: ATTEND Nurse Practitioner Family
DX: R30.0 Dysuria (principal); Z11.3 Encounter for screening for infections with a predominantly sexual mode of transmission

== ENCOUNTER → 2024-06-03 | Outpatient (CLI) | payer BC ==
[2024-06-03 12:12] LABS: BASO % 0.7 % (0.0-1.0); EOS # 0.2 10^3/uL (0.0-0.5); EOS % 2.5 % (0.0-3.0); HEMATOCRIT 42.3 % (36.0-47.0); HEMOGLOBIN 13.9 g/dl (12.0-15.5); LYMPH # 1.8 10^3/uL (1.5-5.0); LYMPH % 29.7 % (24.0-44.0); MEAN CORPUSCULAR HEMOGLOBIN 30.7 pg (27.0-33.0); MEAN CORPUSCULAR HGB CONC 32.9 g/dl (32.0-36.5); MEAN CORPUSCULAR VOLUME 93.4 fl (80.0-96.0); MONO # 0.5 10^3/uL (0.0-0.8); MONO % 7.7 % (2.0-8.0); NEUTROPHILS # 3.6 10^3/uL (1.5-8.5); NEUTROPHILS % 59.2 % (36.0-66.0); PLATELET COUNT, AUTOMATED 241 10^3/uL (150-450); RED BLOOD COUNT 4.53 10^6/uL (4.00-5.40); WHITE BLOOD COUNT 6.1 10^3/uL (4.0-10.0)
[2024-06-03 12:18] LABS: ERYTHROCYTE SEDIMENTATION RATE 15 mm/hr (0-20)
[2024-06-03 12:38] LABS: URIC ACID 4.1 MG/DL (3.1-7.8)
[2024-06-03 12:41] LABS: C REACTIVE PROTEIN QUANTITATIV < 0.40 MG/DL (<1.0); RHEUMATOID FACTOR QUANT 8.7 IU/ML (<14); TOTAL IRON BINDING CAPACITY 300 UG/DL (250-425)
[2024-06-03 12:42] LABS: ALBUMIN 3.5 G/DL (3.2-5.2); ALKALINE PHOSPHATASE 71 U/L (46-116); ALT/SGPT 17 U/L (7.0-40); AST/SGOT 17 U/L (<34); BILIRUBIN,TOTAL 0.6 MG/DL (0.3-1.2); BLOOD UREA NITROGEN 23 MG/DL (9-23); CALCIUM LEVEL 9.1 MG/DL (8.5-10.1); CARBON DIOXIDE LEVEL 28 MMOL/L (20-31); CHLORIDE LEVEL 108 MMOL/L (98-107); CREATININE FOR GFR 0.71 MG/DL (0.55-1.30); GLOMERULAR FILTRATION RATE > 60.0 (>58); GLUCOSE, FASTING 59 MG/DL (60-100); IRON (FE) 87 UG/DL (50-170); SODIUM LEVEL 141 MMOL/L (136-145); TOTAL PROTEIN 6.9 G/DL (5.7-8.2)
[2024-06-03 12:43] LABS: FERRITIN 22.9 NG/ML (7.3-270.7); THYROID STIMULATING HORMONE 0.814 uIU/ML (0.55-4.78)
[2024-06-03 12:44] LABS: FREE T4 1.46 NG/DL (0.89-1.76)
== END ==
LOC: M LAB 11:26
PROVIDERS: ATTEND Physician Assistant
DX: M25.59 Pain in other specified joint (principal)

== ENCOUNTER → 2024-12-28 | Outpatient (REF) ==
[2024-12-28 08:13] LABS: SOFIA COVID ANTIGEN NEGATIVE (NEGATIVE)
== END ==
LOC: M EMP 07:54
PROVIDERS: ATTEND Family Medicine
DX: Z11.52 Encounter for screening for COVID-19 (principal)

== ENCOUNTER → 2025-03-21 | Outpatient (CLI) | payer BC | LOC: M LAB 15:06 | PROVIDERS: ATTEND Nurse Practitioner Adult Health | DX: M54.2 Cervicalgia (principal) ==

== ENCOUNTER → 2025-04-26 | Outpatient (CLI) | payer BC ==
[2025-04-26 12:44] LABS: BASO # 0.0 10^3/uL (0.0-0.2); BASO % 0.2 % (0.0-1.0); EOS # 0.6 10^3/uL (0.0-0.5); EOS % 9.3 % (0.0-3.0); LYMPH # 1.5 10^3/uL (1.5-5.0); LYMPH % 24.0 % (24.0-44.0); MONO # 0.6 10^3/uL (0.0-0.8); MONO % 9.1 % (2.0-8.0); NEUTROPHILS # 3.5 10^3/uL (1.5-8.5); NEUTROPHILS % 56.9 % (36.0-66.0); PLATELET COUNT, AUTOMATED 258 10^3/uL (150-450)
[2025-04-26 13:22] LABS: ERYTHROCYTE SEDIMENTATION RATE 20 mm/hr (0-20)
[2025-04-26 13:28] LABS: C REACTIVE PROTEIN QUANTITATIV 0.59 MG/DL (<1.0)
[2025-04-26 13:32] LABS: ALT/SGPT 22 U/L (7.0-40); AST/SGOT 22 U/L (<34); CALCIUM LEVEL 9.1 MG/DL (8.5-10.1); CARBON DIOXIDE LEVEL 28 MMOL/L (20-31); CHLORIDE LEVEL 110 MMOL/L (98-107); CREATININE FOR GFR 0.77 MG/DL (0.55-1.30); GLOMERULAR FILTRATION RATE > 90.0 (>58); POTASSIUM SERUM 4.0 MMOL/L (3.5-5.1); SODIUM LEVEL 146 MMOL/L (136-145)
[2025-04-26 13:34] LABS: FREE T4 1.31 NG/DL (0.89-1.76)
[2025-04-26 14:07] LABS: HEPATITIS C VIRUS ABY INDEX < 0.02 INDEX (<0.8)
== END ==
LOC: M LAB 12:16
PROVIDERS: ATTEND Nurse Practitioner Adult Health
DX: R19.7 Diarrhea, unspecified (principal)

== ENCOUNTER → 2025-05-23 | Outpatient (CLI) | payer BC | LOC: M WHC 16:01 | PROVIDERS: ATTEND Physician Assistant | DX: Z12.31 Encounter for screening mammogram for malignant neoplasm of breast (principal) ==

== ENCOUNTER → 2025-08-20 | Outpatient (REF) | LOC: M EMP 10:03 | PROVIDERS: ATTEND Family Medicine | DX: Z11.52 Encounter for screening for COVID-19 (principal) ==

== ENCOUNTER → 2025-08-27 | Outpatient (REF) ==
[2025-08-27 08:55] LABS: SOFIA COVID ANTIGEN POSITIVE (NEGATIVE)
== END ==
LOC: M EMP 07:53
PROVIDERS: ATTEND Family Medicine
DX: Z11.52 Encounter for screening for COVID-19 (principal)